=== PATIENT | male | born 1950 | race Caucasian/White ===

== ENCOUNTER 2019-01-04 15:16 | Inpatient (IN) | payer MEDICARE ==
--- NOTE | 2019-01-04 17:02 | NUR ---
RECIEVED PT FROM AMBULANCE. PT IS VERY SLUGGISH, SLOW TO RESPOND. FALLS ASLEEP WHILE SITTING UP. CL IN REACH, SRX2.
--- NOTE | 2019-01-04 18:17 | NUR ---
PT GOT OUT OF BED (BED ALARM ON) STATING HE NEEDED TO PEE. I HAD HIM SIT DOWN AND WENT TO GET A URINLE. WHEN I GOT BACK (MAYBE 1 MINUTE LATER) PT WAS OUT OF BED, URINATING IN/ON/AROUND SINK. PT IS VERY UNSTEADY ON HIS FEAT, ATAXIA MOVEMENTS. CL IN REACH, SRX2, BED ALARM ON. PT STATES HE WILL USE URINLE FROM NOW ON.
--- NOTE | 2019-01-04 19:55 | NUR ---
AT REST WITHEYES CLOSED I HAVE ENTERED ROOM X 3 AND PT WILL NOT STIR AND SLOWLY WSWINGS AT ME WHEN I ATTEMPT TO EXAM. IN BED LOW AND LOCKED WITH BED ALARM ON.
[2019-01-04 20:00] VITALS: BP 151/104
[2019-01-05] VITALS (7 sets, daily range): BP systolic 89–151; BP diastolic 54–104; BMI 26.5; BMI 15.9
[2019-01-05 05:04] LABS: BASOPHILS 0.1 % (0-2); EOSINOPHILS 0.6 % (0-7); HEMATOCRIT 40.5 % (42.0-54.0); HEMOGLOBIN 14.1 g/dL (13.5-17.5); IMMATURE GRANULOCYTES 0.2 % (0-5); LYMPHOCYTES 23.9 % (15-50); MCH 35.7 pg (26.0-34.0); MCHC 34.8 g/dL (31.0-37.0); MCV 102.5 fL (80.0-100.0); MEAN PLATELET VOLUME 9.9 fL (7.4-10.4); MONOCYTES 8.5 % (2-11); NEUTROPHILS 66.7 % (40-80); PLATELET COUNT 142 10x3/uL (130-400); RBC 3.95 10x6/uL (4.20-6.10); RDW 13.8 % (11.5-14.5); WBC 8.2 10x3/uL (4.8-10.8)
[2019-01-05 05:26] LABS: ALBUMIN 2.9 g/dL (3.4-5.0); ALKALINE PHOSPHATASE 70 U/L (46-116); ALT (SGPT) 21 U/L (10-68); AMYLASE - SERUM 49 U/L (25-115); BILIRUBIN - TOTAL 0.73 mg/dL (0.2-1.3); CALC OSMOLALITY 282 mosm/kg (275-300); CALCIUM 9.6 mg/dL (8.5-10.1); CARBON DIOXIDE 24.3 mmol/L (21.0-32.0); CHLORIDE - SERUM 107 mmol/L (98-107); CREATININE - SERUM 0.9 mg/dL (0.6-1.3); GLUCOSE 86 mg/dL (74-106); LIPASE 73 U/L (73-393); MAGNESIUM - SERUM 2.5 mg/dL (1.8-2.4); POTASSIUM - SERUM 3.4 mmol/L (3.5-5.1); PROTEIN - SERUM 6.5 g/dL (6.4-8.2); SODIUM 142 mmol/L (136-145); UREA NITROGEN 14 mg/dL (7-18); eGFR NON AFRICAN AMERICAN 89 mL/min (90-120)
--- NOTE | 2019-01-05 07:34 | NUR ---
AM ROUNDS COMPLETED. INTRODUCED MYSELF TO PT PRIMARY RN FOR TODAYS SHIFT. PT IS A&O LYING DOWN IN BED RESTING QUIETLY. PT DENIES ANY PAIN BUT DOES HAVE SLIGHT DRY COUGH. DENIES ANY SPUTUM. SHIFT ASSESSMENT COMPLETED. WILL REVIEW CHART AND LABS AND CPOC. CL IN REACH, BED IN LOWEST, SIDE RAILS X2. WILL CTM.
--- NOTE | 2019-01-05 08:15 | NUR ---
PT STATES HE TAKES A BLOOD THINNER DAILY FROM [facility] BUT ADMITS HES VERY INCONSISTENT. PT STATES HE USES [facility]. I WILL CALL THEM AND FIND OUT.
--- NOTE | 2019-01-05 10:36 | NUR ---
PTS LEGS HANGING OFF EDGE OF BED. ASSISTED PT UP IN BED WITH ASSISTANCE. PT HOLDING HIS HEAD BUT NEVER ASK FOR ANYTHING. UPON ASSESSING HIM HE DOES ADMIT TO A PRETTY SEVERE HEADACHE. WENT AND GOT HIM TYLENOL. PT VOICED THANKS AND IS RESTING QUIETLY IN BED. NO CURRENT NEEDS. CL IN HAND. WILL CTM.
--- NOTE | 2019-01-05 13:13 | NUR ---
PHARMACY THAT PT PROVIDED WAS [facility] IN [place] AND THEY STATE PT HASNT PICKED UP SINCE APRIL OF 2018 AND THE ONLY THING HE GOT WAS ELIQUIS 5MG BID. WILL TRY TO CONTACT [facility] OFFICE FOR MORE INFORMATION.
[2019-01-05] MEDS ORDERED: ELIQUIS5 MG PO (13:26)
--- NOTE | 2019-01-05 14:55 | NUR ---
PT C/O HIS HEADACHE RETURNING. REQUESTING AND PROVIDED WITH PRN TYLENOL. PT ALSO STATES HIS STOMACH IS CRAMPING AND WOULD LIKE SOME ORANGE JUICE. PT CHINMAY ANY FURTHER NEEDS AT THIS TIME AND WOULD LIKE TO TAKE ANOTHER NAP. CL IN REACH. WILL CTM.
--- NOTE | 2019-01-05 20:01 | NUR ---
RESTING WITH EYES CLOSED AND I DID NOT AROUSE RESP EVEN AND UNLABORED SKIN WARM AND DRY BED IS LOW AND LOCKED WITH SR X2 AND BED ALARM IN PLACE
[2019-01-06 00:08] VITALS: BP 110/62
--- NOTE | 2019-01-06 01:36 | NUR ---
FULL BED CHANGE AND SHOWER PT WAS MUCH MORE ALERT
--- NOTE | 2019-01-06 03:00 | NUR ---
I have reviewed this patient and I concur with the Shift Assessment completed by the Licensed Practical Nurse today this shift.
[2019-01-06 04:00] VITALS: BP 121/65
[2019-01-06 04:39] LABS: BASOPHILS 0.2 % (0-2); EOSINOPHILS 1.1 % (0-7); HEMATOCRIT 37.5 % (42.0-54.0); HEMOGLOBIN 12.7 g/dL (13.5-17.5); IMMATURE GRANULOCYTES 0.2 % (0-5); LYMPHOCYTES 22.5 % (15-50); MCH 35.2 pg (26.0-34.0); MCHC 33.9 g/dL (31.0-37.0); MCV 103.9 fL (80.0-100.0); MEAN PLATELET VOLUME 10.4 fL (7.4-10.4); MONOCYTES 8.3 % (2-11); NEUTROPHILS 67.7 % (40-80); PLATELET COUNT 143 10x3/uL (130-400); RBC 3.61 10x6/uL (4.20-6.10); WBC 8.3 10x3/uL (4.8-10.8)
[2019-01-06 04:48] LABS: ALBUMIN 2.7 g/dL (3.4-5.0); ALKALINE PHOSPHATASE 59 U/L (46-116); ALT (SGPT) 20 U/L (10-68); BILIRUBIN - TOTAL 0.46 mg/dL (0.2-1.3); CALC OSMOLALITY 286 mosm/kg (275-300); CALCIUM 9.3 mg/dL (8.5-10.1); CARBON DIOXIDE 26.4 mmol/L (21.0-32.0); CHLORIDE - SERUM 110 mmol/L (98-107); CREATININE - SERUM 0.7 mg/dL (0.6-1.3); GLUCOSE 88 mg/dL (74-106); POTASSIUM - SERUM 3.4 mmol/L (3.5-5.1); SODIUM 144 mmol/L (136-145); UREA NITROGEN 14 mg/dL (7-18); eGFR NON AFRICAN AMERICAN > 90 mL/min (90-120)
[2019-01-06 04:49] LABS: INR 1.06 (0.85-1.17); PROTIME 13.3 SECONDS (11.6-15.0)
[2019-01-06 08:44] VITALS: BP 119/74
[2019-01-06 11:40] VITALS: BP 119/80
--- NOTE | 2019-01-06 15:29 | NUR ---
I have reviewed this patient and I concur with the Shift Assessment completed by the Licensed Practical Nurse today this shift.
[2019-01-06 15:46] VITALS: BP 108/65
--- NOTE | 2019-01-06 19:00 | NUR ---
PATIENT LAYING IN BED. PATIENT HAS NO COMPLAINTS AT THIS TIME. NO DISTRESS NOTED.
--- NOTE | 2019-01-06 19:30 | MORECARE ---
CASE MANAGEMENT DISCHARGE SUMMARY PATIENT: ANGELI MOURA UNIT: [id number] ADM DATE: 01/04/19 AGE: 68 : 50 SEX: M ROOM/BED: D.2109 AUTHOR: ALAN PEÑALOZA PHYSICIAN: REFERRING PHYSICIAN: MANNY WOODRUFF DO DATE OF SERVICE: 01/06/19 Discharge Plan Patient Name: ANGELI MOURA [facility] [facility] 1950 [facility] Facility Anticipated Discharge Date: Discharge Date: Expected LOS: Initial Reviewer: [id number] Initial Review Date: 01/04/2019 Generated: 01/06/19 8:29 pm Patient Name: ANGELI MOURA Page [id number] at 1930 All edits/amendments must be made on the electronic document DICTATION DATE: 01/06/191928 FOOD SERVICE STEWARD: TIANA 01/06/191928 RPT#: [id number] DC DATE: STATUS: ADM IN [facility] [address] [place] [address] END OF REPORT
--- NOTE | 2019-01-06 19:51 | MORECARE ---
CASE MANAGEMENT DISCHARGE SUMMARY PATIENT: ANGELI MOURA UNIT: [id number] ADM DATE: 01/04/19 AGE: 68 : 50 SEX: M ROOM/BED: D.2106 AUTHOR: JH,DOC PHYSICIAN: REFERRING PHYSICIAN: MANNY WOODRUFF DO DATE OF SERVICE: 01/06/19 Discharge Plan Patient Name: ANGELI MOURA Facility: [facility]:[place] : 1950 Planned Disposition: Senior Care Facility Anticipated Discharge Date: Discharge Date: Expected LOS: Initial Reviewer: [email or web address] Initial Review Date: 01/04/2019 Generated: 01/06/19 8:50 pm Comments DCP- Discharge Planning Updated by [email or web address]: Janessa Rowell on 01/06/19 6:[address] Patient Name: ANGELI MOURA Admission Status: Elective Accout number: [id number] Admission Date: 01-04-2019 : 1950 Admission Diagnosis: Attending: MANNY WOODRUFF Current LOS: 2 Anticipated DC Date: Planned Disposition: Senior Care Facility Primary Insurance: UNINSURED DISCOUNT PLAN Discharge Planning Comments: LATE ENTRY CM MET WITH THE PATIENT AT THE BEDSIDE THIS EARLY AFTERNOON. HE WAS PLEASANT AND COOPERATIVE. HE IS STILL HAZY WHEN ANSWERING QUESTIONS. STATED HE HAS TWO SONS. STATED HE LIVES AT [address] [place] [address]. STATES HE LIVES ALONE. GIVE PHONE NUMBER FOR HIS SON- [phone]. THIS IS NOT THE SON'S PHONE NUMBER. HE DOES NOT HAVE A PCP. PHARMACY- [facility] IN [place]. STATES HE WAS IN A [facility] IN [place] 6 MONTHS AGO. HE CANNOT RECALL THE NAME. TC TO [facility] IN [place] [phone]. PATIENT HAD BEEN THERE PREVIOUSLY. HE WAS DISCHARGED IN 2017. CM ASK IF THEY HAD FAMILY CONTACT PHONE NUMBERS. OBTAINED PHONE NUMBER FOR PATIENT'S EX- . CM SPOKE W/ THE PATIENT. REC CONSENT TO CALL THE EXWIFE. TC TO CALI MOURA AT [phone]. SHE IS COGNIZANT OF PATIENT'S HOSPITALIZATION. SHE CAME UP TO SEE HIM AND SECURED HIS BELONGINGS. SHE WORKS TWO JOBS. SHE IS WILLING TO ASSIST W/ DISCHARHE. SHE FEELS HE SHOULD GO TO A SKILLED FACILITY IF POSSIBLE. SHE STATES HE DOES HAVE INSURANCE. SHE HAS HIS WALLET. SHE CHECKED AND HE HAS MULTIPLE INSURANCE CALLS. CM PROVIDED HER WITH THE PHONE NUMBER FOR MED DATA. HE HAS A [facility] MEDICARE HEALTH CARD MEMBER # [id number] GRP [id number]. SHE DOES NOT HAVE HIS SS#. SHE STATES HE IS A . SHE DOES NOT KNOW IF HE UTILIZES VA CARE. SHE FEELS A FACILITY IN [place] WOULD BE BEST FOR THE PATIENT. SHE STATES HE NEEDS TO BE AWAY FROM PEOPLE WHO INFLUENCE HIM AND ENCOURAGES HIS HABITS. ?? [address] IN [place]. SHE HAD SPOKEN WITH HIS PRIMARY NURSE EARLIER TODAY. SHE WILL FOLLOW THRU W/ MED DATA REGARDING INSURANCE ISSUES. CM TO FOLLOW TO ASSIST W/ DC PLANNING. PATIENT WILL NEED TO BE MORE ORIENTED AND ALERT TO PARTICIPATE. PAL TELEPHONED MED DATA AND SPOKE W/ MICHAEL. PROVIDED MICHAEL WITH EX- CONTACT INFORMATION. Assembler Skylights: Janessa HEART export: 01/06/19 6:30 p Patient Name: ANGELI MOURA Page [phone] at 195 All edits/amendments must be made on the electronic document DICTATION DATE: 01/06/191949 DOORSHAKER: TIANA 01/06/191949 RPT#: [id number] DC DATE: STATUS: ADM IN [facility] [address] [place] [address] END OF REPORT
[2019-01-06 20:00] VITALS: BP 106/69
[2019-01-07] VITALS: BP 125/76
--- NOTE | 2019-01-07 01:34 | NUR ---
PATIENT LAYING IN BED. EYES CLOSED, CHEST RISING AND FALLING. NO DISTRESS NOTED.
[2019-01-07 04:00] VITALS: BP 141/80
[2019-01-07 05:10] LABS: BASOPHILS 0.3 % (0-2); EOSINOPHILS 1.7 % (0-7); HEMATOCRIT 36.4 % (42.0-54.0); HEMOGLOBIN 12.3 g/dL (13.5-17.5); IMMATURE GRANULOCYTES 0.3 % (0-5); LYMPHOCYTES 24.9 % (15-50); MCH 34.9 pg (26.0-34.0); MCHC 33.8 g/dL (31.0-37.0); MCV 103.4 fL (80.0-100.0); MEAN PLATELET VOLUME 10.3 fL (7.4-10.4); MONOCYTES 10.4 % (2-11); NEUTROPHILS 62.4 % (40-80); PLATELET COUNT 151 10x3/uL (130-400); RBC 3.52 10x6/uL (4.20-6.10); WBC 6.6 10x3/uL (4.8-10.8)
[2019-01-07 05:39] LABS: ALBUMIN 2.6 g/dL (3.4-5.0); ALKALINE PHOSPHATASE 55 U/L (46-116); ALT (SGPT) 16 U/L (10-68); BILIRUBIN - TOTAL 0.41 mg/dL (0.2-1.3); CALC OSMOLALITY 282 mosm/kg (275-300); CALCIUM 9.3 mg/dL (8.5-10.1); CARBON DIOXIDE 25.2 mmol/L (21.0-32.0); CHLORIDE - SERUM 111 mmol/L (98-107); CREATININE - SERUM 0.7 mg/dL (0.6-1.3); GLUCOSE 98 mg/dL (74-106); POTASSIUM - SERUM 3.1 mmol/L (3.5-5.1); PROTEIN - SERUM 5.9 g/dL (6.4-8.2); SODIUM 142 mmol/L (136-145); UREA NITROGEN 13 mg/dL (7-18); eGFR NON AFRICAN AMERICAN > 90 mL/min (90-120)
--- NOTE | 2019-01-07 07:45 | NUR ---
AM ROUNDS COMPLETED. INTRODUCED MYSELF TO PT PRIMARY RN FOR TODAYS SHIFT. PT IS A&O LYING BACK IN BED RESTING QUIETLY. SHIFT ASSESSMENT COMPLETED. PT DENIES ANY CURRENT PAIN OR NEEDS AND IS WAITING ON BREAKFAST. CL IN REACH. WILL CTM.
[2019-01-07 08:18] VITALS: BP 136/64
--- NOTE | 2019-01-07 09:28 | NUR ---
PT SITTING UP IN BED RESTING QUIETLY. PT STATES HE IS FEELING GOOD OVERALL GETS OCCASIONAL HEADACHES, PROVIDED WITH TYLENOL PT IS READY TO START SOME THERAPY AND STATES HE KNOWS HE IS WEAK. NO CURRENT NEEDS AT THIS TIME. CL IN REACH. WILL CTM.
[2019-01-07 12:39] VITALS: BP 119/72
--- NOTE | 2019-01-07 14:23 | NUR ---
PT STATES HIS CHEST IS HURTING. VSS. STAT EKG PERFORMED AND NOTED TO MORGAN DAWN APN ON FLOOR. PT STATES "IT JUST HURTS I CANT EXPLAIN IT" EKG NORMAL, WILL CTM.
[2019-01-07 16:50] VITALS: BP 121/72
[2019-01-07 17:04] LABS: CKMB 1.1 U/L (0.0-3.6); CREATINE KINASE 84 UL (21-232); TROPONIN-I < 0.017 ng/mL (0.000-0.060)
--- NOTE | 2019-01-07 18:08 | MORECARE ---
CASE MANAGEMENT DISCHARGE SUMMARY PATIENT: ANGELI MOURA UNIT: [id number] ADM DATE: 01/04/19 AGE: 68 : 50 SEX: M ROOM/BED: D.2107 AUTHOR: JH,DOC PHYSICIAN: REFERRING PHYSICIAN: MANNY WOODRUFF DO DATE OF SERVICE: 01/07/19 Discharge Plan Patient Name: ANGELI MOURA Facility: [facility]:[place] : 1950 Planned Disposition: Nursing Home Facility Anticipated Discharge Date: Discharge Date: Expected LOS: Initial Reviewer: [id number] Initial Review Date: 01/04/2019 Generated: 01/07/19 7:08 pm Comments DCP- Discharge Planning Updated by [id number]: Janessa Rowell on 01/07/19 5:[address] LATE ENTRY RECEIVED TELEPHONE CALL FROM KEYONA WITH [employer]. HE HAS OBATINED THE NECESSARY INSURANCE INFORMATION. CM WILL BEGIN SEARCH FOR A FACILITY A PAYOR SOURCE HAS BEEN IDENTIFIED FOR SERVICES. DCP- Discharge Planning Updated by [id number]: Janessa Rowell on 01/06/19 6:[address] Patient Name: ANGELI MOURA Admission Status: Elective Accout number: [id number] Admission Date: 01-04-2019 : 1950 Admission Diagnosis: Attending: MANNY WOODRUFF Current LOS: 2 Anticipated DC Date: Planned Disposition: Nursing Home Facility Primary Insurance: UNINSURED DISCOUNT PLAN Discharge Planning Comments: LATE ENTRY CM MET WITH THE PATIENT AT THE BEDSIDE THIS EARLY AFTERNOON. HE WAS PLEASANT AND COOPERATIVE. HE IS STILL HAZY WHEN ANSWERING QUESTIONS. STATED HE HAS TWO SONS. STATED HE LIVES AT [address] [place] [address]. STATES HE LIVES ALONE. GIVE PHONE NUMBER FOR HIS SON- [phone]. THIS IS NOT THE SON'S PHONE NUMBER. HE DOES NOT HAVE A PCP. PHARMACY- [facility] IN [place]. STATES HE WAS IN A RESIDENTIAL IN [place] 6 MONTHS AGO. HE CANNOT RECALL THE NAME. TC TO [facility] IN [place] [phone]. PATIENT HAD BEEN THERE PREVIOUSLY. HE WAS DISCHARGED IN 2017. CM ASK IF THEY HAD FAMILY CONTACT PHONE NUMBERS. OBTAINED PHONE NUMBER FOR PATIENT'S EX- . CM SPOKE W/ THE PATIENT. REC CONSENT TO CALL THE EXWIFE. TC TO CALI MOURA AT [phone]. SHE IS COGNIZANT OF PATIENT'S HOSPITALIZATION. SHE CAME UP TO SEE HIM AND SECURED HIS BELONGINGS. SHE WORKS TWO JOBS. SHE IS WILLING TO ASSIST W/ DISCHARHE. SHE FEELS HE SHOULD GO TO A SKILLED FACILITY IF POSSIBLE. SHE STATES HE DOES HAVE INSURANCE. SHE HAS HIS WALLET. SHE CHECKED AND HE HAS MULTIPLE INSURANCE CALLS. CM PROVIDED HER WITH THE PHONE NUMBER FOR MED DATA. HE HAS A [facility] MEDICARE HEALTH CARD MEMBER # [id number] GRP [phone]. SHE DOES NOT HAVE HIS SS#. SHE STATES HE IS A . SHE DOES NOT KNOW IF HE UTILIZES VA CARE. SHE FEELS A FACILITY IN [place] WOULD BE BEST FOR THE PATIENT. SHE STATES HE NEEDS TO BE AWAY FROM PEOPLE WHO INFLUENCE HIM AND ENCOURAGES HIS HABITS. ?? [address] IN [place]. SHE HAD SPOKEN WITH HIS PRIMARY NURSE EARLIER TODAY. SHE WILL FOLLOW THRU W/ MED DATA REGARDING INSURANCE ISSUES. CM TO FOLLOW TO ASSIST W/ DC PLANNING. PATIENT WILL NEED TO BE MORE ORIENTED AND ALERT TO PARTICIPATE. CM TELEPHONED MED DATA AND SPOKE W/ MICHAEL. PROVIDED MICHAEL WITH EX- CONTACT INFORMATION. Boat Tender: Janessa HEART export: 01/06/19 6:50 p Patient Name: ANGELI MOURA Page [phone] at 1808 All edits/amendments must be made on the electronic document DICTATION DATE: 01/07/191807 CATEGORY ANALYST: TIANA 01/07/191807 RPT#: [id number] DC DATE: STATUS: ADM IN [facility] [address] [place] [place] [address] END OF REPORT
--- NOTE | 2019-01-07 19:15 | NUR ---
PATIENT LAYING IN BED. NO COMPLAINTS AT THIS TIME. NO DISTRESS NOTED.
[2019-01-07 21:04] VITALS: BP 120/71
[2019-01-07 21:39] LABS: CKMB 0.8 U/L (0.0-3.6); CREATINE KINASE 80 UL (21-232)
[2019-01-07 21:49] LABS: TROPONIN-I < 0.017 ng/mL (0.000-0.060)
[2019-01-08 01:29] VITALS: BP 119/67
[2019-01-08 02:50] LABS: BASOPHILS 0.5 % (0-2); HEMATOCRIT 33.4 % (42.0-54.0); HEMOGLOBIN 11.5 g/dL (13.5-17.5); IMMATURE GRANULOCYTES 0.3 % (0-5); LYMPHOCYTES 33.1 % (15-50); MCH 35.1 pg (26.0-34.0); MCHC 34.4 g/dL (31.0-37.0); MCV 101.8 fL (80.0-100.0); MEAN PLATELET VOLUME 10.1 fL (7.4-10.4); MONOCYTES 11.3 % (2-11); NEUTROPHILS 52.8 % (40-80); PLATELET COUNT 156 10x3/uL (130-400); RBC 3.28 10x6/uL (4.20-6.10); RDW 13.4 % (11.5-14.5); WBC 6.4 10x3/uL (4.8-10.8)
[2019-01-08 03:03] LABS: ALBUMIN 2.4 g/dL (3.4-5.0); ALKALINE PHOSPHATASE 51 U/L (46-116); ALT (SGPT) 16 U/L (10-68); CALC OSMOLALITY 286 mosm/kg (275-300); CALCIUM 8.9 mg/dL (8.5-10.1); CARBON DIOXIDE 24.3 mmol/L (21.0-32.0); CHLORIDE - SERUM 111 mmol/L (98-107); CREATINE KINASE 66 UL (21-232); CREATININE - SERUM 0.7 mg/dL (0.6-1.3); GLUCOSE 103 mg/dL (74-106); MAGNESIUM - SERUM 2.3 mg/dL (1.8-2.4); PROTEIN - SERUM 5.5 g/dL (6.4-8.2); SODIUM 144 mmol/L (136-145); UREA NITROGEN 12 mg/dL (7-18); eGFR NON AFRICAN AMERICAN > 90 mL/min (90-120)
[2019-01-08 03:04] LABS: TROPONIN-I < 0.017 ng/mL (0.000-0.060)
--- NOTE | 2019-01-08 03:30 | NUR ---
PATIENT LAYING IN BED. EYES CLOSED, CHEST RISING AND FALLING. NO DISTRESS NOTED.
--- NOTE | 2019-01-08 06:12 | NUR ---
I have reviewed this patient and I concur with the Shift Assessment completed by the Licensed Practical Nurse today this shift.
[2019-01-08 06:22] VITALS: BP 136/75
--- NOTE | 2019-01-08 07:45 | NUR ---
RESTING QUIETLY WITH EYES CLOSED, OPENED TO NAME. A/A/0X4 AND DENIES ANY PAIN OR DISCOMFORT WITH NO REQUESTS VOICED. ASSESSMENT COMPLETED AND WILL CONTINUE POC.
[2019-01-08 08:13] VITALS: BP 154/93
--- NOTE | 2019-01-08 10:55 | NUR ---
I have reviewed this patient and I concur with the Shift Assessment completed by the Licensed Practical Nurse today this shift.
[2019-01-08 11:45] VITALS: BP 129/80
--- NOTE | 2019-01-08 14:37 | NUR ---
Nutrition follow-up: Diet: Low sodium PO intake 75-100% of meals Labs reviewed Wt: 115#; pt with some weight gain noted RDN following.
[2019-01-08 16:29] VITALS: BP 134/84
[2019-01-08 20:00] VITALS: BP 122/71
--- NOTE | 2019-01-08 20:00 | NUR ---
PATIENT RECEIVED SITTING UP IN BED WATCHING TV. ASSESSMENT & VITAL SIGNS DONE. PATIENT HAD NO C/O PAIN OR DISTRESS. BED LOW. CALL LIGHT WITHIN REACH. WILL CONTINUE TO MONITOR.
--- NOTE | 2019-01-08 20:03 | MORECARE ---
CASE MANAGEMENT DISCHARGE SUMMARY PATIENT: ANGELI MOURA UNIT: [id number] ADM DATE: 01/04/19 AGE: 68 : 50 SEX: M ROOM/BED: D.2108 AUTHOR: JH,DOC PHYSICIAN: REFERRING PHYSICIAN: MANNY WOODRUFF DO DATE OF SERVICE: 01/08/19 Discharge Plan Patient Name: ANGELI MOURA Facility: [facility]:[place] : 1950 Planned Disposition: Detention Facility Anticipated Discharge Date: Discharge Date: Expected LOS: Initial Reviewer: [id number] Initial Review Date: 01/04/2019 Generated: 01/08/19 9:03 pm Comments DCP- Discharge Planning Updated by [id number]: Janessa Rowell on 01/08/19 6:[address] 1000 - TC TO 2591 TO ADVISE THE PATIENT'S INSURANCE HAD BEEN UPDATED. HE HAS [facility] MEDICARE SOLUTIONS. SHE WILL PRECERT. 7460 - [facility] ADVISED I SEARCHED FOR A SKILLED FACILITY ON [facility] ON [address] [place] [address] [facility] [place]. NO FACILITY FOUND. REVIEWED THE FACILITIES AND RATINGS FOUND ON THE INTERNET. HAD SPOKEN WITH THE PATIENT, HE SAID IT WAS LOCATED A FEW BLOCKS FROM [facility]. TC TO [facility]. CM WAS ADVISED [facility] WAS A FEW BLOCK AWAY WHICH IS AN ACUTE REHAB. TC TO [facility], FOR [facility]- [phone]. PACKET PREPARED FOR REFERRAL. PAL RECEIVED TELEPHONE CALL FROM FELY MITCHELL, THE FACILITY'S NAME IS [facility] WHICH IS A SKILLED FACILITY. PT EVAL HAD BEEN COMPLETED WITH RECOMMENDATION FOR SNF OR REHAB. AWAIT OT EVAL. OT WILL NOT BE AVAILABLE UNTIL FRIDAY DUE TO ILLNESS. PATIENT WILL ALSO REQUIRE A PRECERT FROM HIS INSURANCE. CM DISCUSSED WITH THE PATIENT. HE IS IN AGREEMENT WITH THE REFERRAL DIRECTED BY THE EX-. TC TO [phone]. REFERRED TO [facility] AGRICULTURAL E[facility]OMIST, AT [phone]. CM FAXED REFERRAL TO [place] AFTER DISCUSSION W/ CASEY. SHE STATES THEY ARE CONTRACTED W/ [facility] MEDICARE SOLUTIONS. FAX NUMBER [phone]. AWAIT CALL FROM AGRICULTURAL ECONOMIST. DCP- Discharge Planning Updated by [id number]: Janessa Sorin on 01/07/19 5:[address] LATE ENTRY RECEIVED TELEPHONE CALL FROM [employer] WITH [employer]. HE HAS OBATINED THE NECESSARY INSURANCE INFORMATION. CM WILL BEGIN SEARCH FOR A FACILITY A PAYOR SOURCE HAS BEEN IDENTIFIED FOR SERVICES. DCP- Discharge Planning Updated by [id number]: Janessa Sorin on 01/06/19 6:[address] Patient Name: ANGELI MOURA Admission Status: Elective Accout number: [id number] Admission Date: 01-04-2019 : 1950 Admission Diagnosis: Attending: MANNY WOODRUFF Current LOS: 2 Anticipated DC Date: Planned Disposition: Detention Facility Primary Insurance: UNINSURED DISCOUNT PLAN Discharge Planning Comments: LATE ENTRY CM MET WITH THE PATIENT AT THE BEDSIDE THIS EARLY AFTERNOON. HE WAS PLEASANT AND COOPERATIVE. HE IS STILL HAZY WHEN ANSWERING QUESTIONS. STATED HE HAS TWO SONS. STATED HE LIVES AT [address] [place] [address]. STATES HE LIVES ALONE. GIVE PHONE NUMBER FOR HIS SON- [phone]. THIS IS NOT THE SON'S PHONE NUMBER. HE DOES NOT HAVE A PCP. PHARMACY- [facility] IN [place]. STATES HE WAS IN A [facility] IN [place] 6 MONTHS AGO. HE CANNOT RECALL THE NAME. TC TO [facility] IN [place] [phone]. PATIENT HAD BEEN THERE PREVIOUSLY. HE WAS DISCHARGED IN 2017. CM ASK IF THEY HAD FAMILY CONTACT PHONE NUMBERS. OBTAINED PHONE NUMBER FOR PATIENT'S EX- . PAL SPOKE W/ THE PATIENT. REC CONSENT TO CALL THE EXWIFE. TC TO CALI MOURA AT [phone]. SHE IS COGNIZANT OF PATIENT'S HOSPITALIZATION. SHE CAME UP TO SEE HIM AND SECURED HIS BELONGINGS. SHE WORKS TWO JOBS. SHE IS WILLING TO ASSIST W/ VINCENT. SHE FEELS HE SHOULD GO TO A SKILLED FACILITY IF POSSIBLE. SHE STATES HE DOES HAVE INSURANCE. SHE HAS HIS WALLET. SHE CHECKED AND HE HAS MULTIPLE INSURANCE CALLS. PAL PROVIDED HER WITH THE PHONE NUMBER FOR MED DATA. HE HAS A [facility] MEDICARE HEALTH CARD MEMBER # [id number] [facility] [address]. SHE DOES NOT HAVE HIS SS#. SHE STATES HE IS A . SHE DOES NOT KNOW IF HE UTILIZES VA CARE. SHE FEELS A FACILITY IN [place] WOULD BE BEST FOR THE PATIENT. SHE STATES HE NEEDS TO BE AWAY FROM PEOPLE WHO INFLUENCE HIM AND ENCOURAGES HIS HABITS. ?? [address] IN [place]. SHE HAD SPOKEN WITH HIS PRIMARY NURSE EARLIER TODAY. SHE WILL FOLLOW THRU W/ MED DATA REGARDING INSURANCE ISSUES. CM TO FOLLOW TO ASSIST W/ DC PLANNING. PATIENT WILL NEED TO BE MORE ORIENTED AND ALERT TO PARTICIPATE. CM TELEPHONED MED DATA AND SPOKE W/ MICHAEL. PROVIDED MICHAEL WITH EX- CONTACT INFORMATION. Business Systems Administrator: Janessa Rsoe DP export: 01/07/19 5:08 p Patient Name: ANGELI MOURA Page [phone] at 2002 All edits/amendments must be made on the electronic document DICTATION DATE: 01/08/192002 TESTING TECH: TIANA 01/08/192002 RPT#: [id number] DC DATE: STATUS: ADM IN [facility] [address] [place] [address] END OF REPORT
--- NOTE | 2019-01-08 20:10 | MORECARE ---
CASE MANAGEMENT DISCHARGE SUMMARY PATIENT: ANGELI MOURA UNIT: [id number] ADM DATE: 01/04/19 AGE: 68 : 50 SEX: M ROOM/BED: D.2100 AUTHOR: JH,DOC PHYSICIAN: REFERRING PHYSICIAN: MANNY WOODRUFF DO DATE OF SERVICE: 01/08/19 Discharge Plan Patient Name: ANGELI MOURA Facility: [facility]:[place] : 1950 Planned Disposition: [facility] Facility Anticipated Discharge Date: Discharge Date: Expected LOS: Initial Reviewer: [id number] Initial Review Date: 01/04/2019 Generated: 01/08/19 9:10 pm Comments DCP- Discharge Planning Updated by [id number]: Janessa Rowell on 01/08/19 7:[address] 1000 - TC TO 2591 TO ADVISE THE PATIENT'S INSURANCE HAD BEEN UPDATED. HE HAS [facility] MEDICARE SOLUTIONS. SHE WILL PRECERT. 6640 - [facility] ADVISED I SEARCHED FOR A SKILLED FACILITY ON [facility] ON [address] [place] [address] [facility] [place]. NO FACILITY FOUND. REVIEWED THE FACILITIES AND RATINGS FOUND ON THE INTERNET. HAD SPOKEN WITH THE PATIENT, HE SAID IT WAS LOCATED A FEW BLOCKS FROM [facility]. TC TO [facility]. CM WAS ADVISED [facility] WAS A FEW BLOCK AWAY WHICH IS AN ACUTE REHAB. TC TO [facility], FOR [facility]- [phone]. PACKET PREPARED FOR REFERRAL. CM RECEIVED TELEPHONE CALL FROM FELY MITCHELL, THE FACILITY'S NAME IS [facility] WHICH IS A SKILLED FACILITY. PT EVAL HAD BEEN COMPLETED WITH RECOMMENDATION FOR SNF OR REHAB. AWAIT OT EVAL. OT WILL NOT BE AVAILABLE UNTIL FRIDAY DUE TO ILLNESS. PATIENT WILL ALSO REQUIRE A PRECERT FROM HIS INSURANCE. CM DISCUSSED WITH THE PATIENT. HE IS IN AGREEMENT WITH THE REFERRAL DIRECTED BY THE EX-. PATIENT CONSENT OBTAINED. TC TO [phone]. REFERRED TO [facility] ROOM GEAR MACHINE OPERATOR, AT [phone]. CM FAXED REFERRAL TO [place] AFTER DISCUSSION W/ CASEY. SHE STATES THEY ARE CONTRACTED W/ [facility] MEDICARE SOLUTIONS. FAX NUMBER [phone]. AWAIT CALL FROM TOOL ROOM GEAR MACHINE OPERATOR. DCP- Discharge Planning Updated by [id number]: Janessa Rowell on 01/07/19 5:[address] LATE ENTRY RECEIVED TELEPHONE CALL FROM [employer] WITH [employer]. HE HAS OBATINED THE NECESSARY INSURANCE INFORMATION. CM WILL BEGIN SEARCH FOR A FACILITY A PAYOR SOURCE HAS BEEN IDENTIFIED FOR SERVICES. DCP- Discharge Planning Updated by [id number]: Janessa Sorin on 01/06/19 6:[address] Patient Name: ANGELI MOURA Admission Status: Elective Accout number: [id number] Admission Date: 01-04-2019 : 1950 Admission Diagnosis: Attending: MANNY WOODRUFF Current LOS: 2 Anticipated DC Date: Planned Disposition: [facility] Facility Primary Insurance: UNINSURED DISCOUNT PLAN Discharge Planning Comments: LATE ENTRY CM MET WITH THE PATIENT AT THE BEDSIDE THIS EARLY AFTERNOON. HE WAS PLEASANT AND COOPERATIVE. HE IS STILL HAZY WHEN ANSWERING QUESTIONS. STATED HE HAS TWO SONS. STATED HE LIVES AT [address] [place] [address]. STATES HE LIVES ALONE. GIVE PHONE NUMBER FOR HIS SON- [phone]. THIS IS NOT THE SON'S PHONE NUMBER. HE DOES NOT HAVE A PCP. PHARMACY- [facility] IN [place]. STATES HE WAS IN A [facility]AY IN [place] 6 MONTHS AGO. HE CANNOT RECALL THE NAME. TC TO [facility] IN [place] [phone]. PATIENT HAD BEEN THERE PREVIOUSLY. HE WAS DISCHARGED IN 2017. CM ASK IF THEY HAD FAMILY CONTACT PHONE NUMBERS. OBTAINED PHONE NUMBER FOR PATIENT'S EX- . PAL SPOKE W/ THE PATIENT. REC CONSENT TO CALL THE EXWIFE. TC TO CALI MOURA AT [phone]. SHE IS COGNIZANT OF PATIENT'S HOSPITALIZATION. SHE CAME UP TO SEE HIM AND SECURED HIS BELONGINGS. SHE WORKS TWO JOBS. SHE IS WILLING TO ASSIST W/ VINCENT. SHE FEELS HE SHOULD GO TO A SKILLED FACILITY IF POSSIBLE. SHE STATES HE DOES HAVE INSURANCE. SHE HAS HIS WALLET. SHE CHECKED AND HE HAS MULTIPLE INSURANCE CALLS. PAL PROVIDED HER WITH THE PHONE NUMBER FOR MED DATA. HE HAS A [facility] MEDICARE HEALTH CARD MEMBER # [id number] [facility] [address]. SHE DOES NOT HAVE HIS SS#. SHE STATES HE IS A . SHE DOES NOT KNOW IF HE UTILIZES VA CARE. SHE FEELS A FACILITY IN [place] WOULD BE BEST FOR THE PATIENT. SHE STATES HE NEEDS TO BE AWAY FROM PEOPLE WHO INFLUENCE HIM AND ENCOURAGES HIS HABITS. ?? [address] IN [place]. SHE HAD SPOKEN WITH HIS PRIMARY NURSE EARLIER TODAY. SHE WILL FOLLOW THRU W/ MED DATA REGARDING INSURANCE ISSUES. CM TO FOLLOW TO ASSIST W/ DC PLANNING. PATIENT WILL NEED TO BE MORE ORIENTED AND ALERT TO PARTICIPATE. CM TELEPHONED MED DATA AND SPOKE W/ MICHAEL. PROVIDED MICHAEL WITH EX- CONTACT INFORMATION. Watch Hairspring Assembler: Janessa HEART export: 01/08/19 7:03 p Patient Name: ANGELI MOURA Page [id number] at 2009 All edits/amendments must be made on the electronic document DICTATION DATE: 01/08/192009 RN INTERN: TIANA 01/08/192009 RPT#: [id number] DC DATE: STATUS: ADM IN [facility] [address] [place] [address] END OF REPORT
--- NOTE | 2019-01-09 02:29 | NUR ---
PATIENT EYES CLOSED. RESPIRATIONS 18 & EVEN. BED LOW. PATIENT ABLE TO VOICE HIS NEEDS & USE CALL LIGHT WITHIN REACH. WILL CONTINUE TO MONITOR.
[2019-01-09 03:40] LABS: BASOPHILS 0.6 % (0-2); EOSINOPHILS 2.8 % (0-7); HEMOGLOBIN 11.3 g/dL (13.5-17.5); IMMATURE GRANULOCYTES 0.3 % (0-5); LYMPHOCYTES 35.3 % (15-50); MCH 35.2 pg (26.0-34.0); MCHC 34.2 g/dL (31.0-37.0); MCV 102.8 fL (80.0-100.0); MONOCYTES 10.2 % (2-11); NEUTROPHILS 50.8 % (40-80); PLATELET COUNT 179 10x3/uL (130-400); RBC 3.21 10x6/uL (4.20-6.10); RDW 13.6 % (11.5-14.5); WBC 6.5 10x3/uL (4.8-10.8)
[2019-01-09 04:00] VITALS: BP 137/92
[2019-01-09 04:01] LABS: ALBUMIN 2.4 g/dL (3.4-5.0); ALKALINE PHOSPHATASE 51 U/L (46-116); ALT (SGPT) 20 U/L (10-68); BILIRUBIN - TOTAL 0.26 mg/dL (0.2-1.3); CALC OSMOLALITY 287 mosm/kg (275-300); CALCIUM 9.3 mg/dL (8.5-10.1); CARBON DIOXIDE 24.7 mmol/L (21.0-32.0); CHLORIDE - SERUM 113 mmol/L (98-107); CREATININE - SERUM 0.7 mg/dL (0.6-1.3); GLUCOSE 94 mg/dL (74-106); MAGNESIUM - SERUM 1.8 mg/dL (1.8-2.4); POTASSIUM - SERUM 3.4 mmol/L (3.5-5.1); PROTEIN - SERUM 5.5 g/dL (6.4-8.2); SODIUM 145 mmol/L (136-145); UREA NITROGEN 11 mg/dL (7-18); eGFR NON AFRICAN AMERICAN > 90 mL/min (90-120)
--- NOTE | 2019-01-09 04:37 | NUR ---
I have reviewed this patient and I concur with the Shift Assessment completed by the Licensed Practical Nurse today this shift.
--- NOTE | 2019-01-09 07:23 | NUR ---
PT AWAKEN AND ORIENTED, WALKING AROUND ROOM. PT ASKED HOW TO GET OUT OF HERE, WENT ON TO EXPLAIN THAT HE NEEDED TO GO TO THE BANK AND HAD THINGS HE NEEDED TO DO. I INFORMED THE PT THAT HE NEEDED A DISCHARGE TO LEAVE, THAT LEAVING WITHOUT A D/C WOULD MEAN THAT INSURANCE WOULDN'T PAY FOR HIS VISIT. PT UNDERSTOOD AND STATED HE'D WAIT FOR THE DR AND EXPLAIN THAT HE WANTED TO D/C AT THAT TIME. NO COMPLAINTS/CONCERNS STATED, NO DISTRESS STATED OR NOTED AT THIS TIME. CL IN REACH.
[2019-01-09 08:33] VITALS: BP 146/70
--- NOTE | 2019-01-09 10:20 | NUR ---
I have reviewed this patient and I concur with the Shift Assessment completed by the Licensed Practical Nurse today this shift.
[2019-01-09 12:16] VITALS: BP 141/66
[2019-01-09 15:45] VITALS: BP 136/76
--- NOTE | 2019-01-09 19:38 | NUR ---
PT COMPLAINS OF PRESSURE CHEST PAIN. PT IS ALERT AND ORIENTED X3. EKG SHOWS NORMAL SINUS 70/ BORDERLINE. PLACED PT ON TELE RUNNING 71 SINUS RYTHEM. BED LOW CALL LIGHT WITHIN REACH. WILL CONTINUE TO MONITOR.
--- NOTE | 2019-01-09 20:21 | NUR ---
PT COMPLAINS OF PAIN IN LEFT EYE. PT STATES HE FELL AT HOME. PT HAS ELEVATED QUARTER SIZED BUMP ON HEAD. VT RR EVEN AND UNLABORED BED LOW CALL LIGHT WITHIN REACH. WILL CONTINUE TO MONITOR.
[2019-01-09 20:22] VITALS: BP 88/58
--- NOTE | 2019-01-09 22:24 | NUR ---
PT SITTING UP ON SIDE OF BED REQUESTING CUP OF COFFEE. WILL CONTINUE TO MONITOR.
--- NOTE | 2019-01-09 22:53 | NUR ---
PT REFUSES TO WEAR TELEMETRY AT THIS TIME. WILL CONTINUE TO MONITOR.
[2019-01-09 23:57] VITALS: BP 100/61
--- NOTE | 2019-01-10 02:39 | NUR ---
PT RESTING IN BED WITH EYES CLOSED RR EVEN AND UNLABORED. BED LOW CALL LIGHT WITHIN REACH. WILL CONTINUE TO MONITOR.
--- NOTE | 2019-01-10 03:17 | NUR ---
I have reviewed this patient and I concur with the Shift Assessment completed by the Licensed Practical Nurse today this shift.
[2019-01-10 05:04] LABS: BASOPHILS 0.7 % (0-2); EOSINOPHILS 2.1 % (0-7); HEMATOCRIT 32.3 % (42.0-54.0); IMMATURE GRANULOCYTES 0.3 % (0-5); LYMPHOCYTES 39.4 % (15-50); MCH 34.7 pg (26.0-34.0); MCHC 34.1 g/dL (31.0-37.0); MCV 101.9 fL (80.0-100.0); MEAN PLATELET VOLUME 9.8 fL (7.4-10.4); MONOCYTES 10.7 % (2-11); NEUTROPHILS 46.8 % (40-80); PLATELET COUNT 199 10x3/uL (130-400); RBC 3.17 10x6/uL (4.20-6.10); RDW 13.6 % (11.5-14.5); WBC 6.7 10x3/uL (4.8-10.8)
[2019-01-10 05:35] LABS: ALBUMIN 2.4 g/dL (3.4-5.0); ALKALINE PHOSPHATASE 52 U/L (46-116); ALT (SGPT) 21 U/L (10-68); BILIRUBIN - TOTAL 0.21 mg/dL (0.2-1.3); CALC OSMOLALITY 284 mosm/kg (275-300); CHLORIDE - SERUM 113 mmol/L (98-107); CREATININE - SERUM 0.7 mg/dL (0.6-1.3); GLUCOSE 83 mg/dL (74-106); MAGNESIUM - SERUM 2.1 mg/dL (1.8-2.4); POTASSIUM - SERUM 3.4 mmol/L (3.5-5.1); PROTEIN - SERUM 5.5 g/dL (6.4-8.2); SODIUM 144 mmol/L (136-145); UREA NITROGEN 9 mg/dL (7-18); eGFR NON AFRICAN AMERICAN > 90 mL/min (90-120)
[2019-01-10 05:38] VITALS: BP 125/78
--- NOTE | 2019-01-10 07:26 | NUR ---
PT AWAKE AND ORIENTED, LYING IN BED. STATES HE SLEPT GOOD LAST NIGHT AND CAN'T WAIT UNTIL HE GETS TO LEAVE. STATES THAT HE'S HAD SOME CHEST PRESSURE/PAIN, BUT HE THINKS IT'S ANXIETY BECAUSE IT GET'S RELIEVED WITH HIS SCHEDULED ATIVAN. NO COMPLAINTS/CONCERNS/COMMENTS/QUESTIONS AT THIS TIME. CL IN REACH,[id number]
[2019-01-10 08:31] VITALS: BP 151/91
--- NOTE | 2019-01-10 10:39 | NUR ---
I have reviewed this patient and I concur with the Shift Assessment completed by the Licensed Practical Nurse today this shift.
[2019-01-10 12:06] VITALS: BP 120/68
[2019-01-10 15:04] VITALS: BP 118/86
--- NOTE | 2019-01-10 19:52 | NUR ---
RECIEVED PT REPORT FROM SAEED SIEGEL. PT ALERTAND ORIENTED X4. RR EVEN AND UNLABORED. DC'D RIGHT FOREARM IV WITH CATHETER TIP IN PLACE. NO SWELLING OR REDNESS NOTED. RE-ESTABLISHED 20G IV IN LEFT FOREARM. IV PATENT BANANNA BAG GOING @125ML/HR. PT DENIES ANY PAIN OR FURTHER NEEDS AT THIS TIME. BED LOW CALL LIGHT WITHIN REACH. WILL CONTINUE TO MONITOR.
[2019-01-10 20:00] VITALS: BP 118/64
[2019-01-11] VITALS: BP 138/78
--- NOTE | 2019-01-11 03:56 | NUR ---
I have reviewed this patient and I concur with the Shift Assessment completed by the Licensed Practical Nurse today this shift.
[2019-01-11 04:00] VITALS: BP 134/69
[2019-01-11 05:39] LABS: BASOPHILS 0.5 % (0-2); EOSINOPHILS 1.9 % (0-7); HEMATOCRIT 32.2 % (42.0-54.0); HEMOGLOBIN 10.9 g/dL (13.5-17.5); IMMATURE GRANULOCYTES 0.3 % (0-5); MCH 35.2 pg (26.0-34.0); MCHC 33.9 g/dL (31.0-37.0); MEAN PLATELET VOLUME 10.3 fL (7.4-10.4); NEUTROPHILS 54.3 % (40-80); PLATELET COUNT 226 10x3/uL (130-400); RDW 13.9 % (11.5-14.5); WBC 7.6 10x3/uL (4.8-10.8)
[2019-01-11 05:58] LABS: MCV 103.9 fL (80.0-100.0)
[2019-01-11 06:18] LABS: ALBUMIN 2.5 g/dL (3.4-5.0); ALKALINE PHOSPHATASE 52 U/L (46-116); ALT (SGPT) 24 U/L (10-68); BILIRUBIN - TOTAL 0.18 mg/dL (0.2-1.3); CALCIUM 9.1 mg/dL (8.5-10.1); CARBON DIOXIDE 25.8 mmol/L (21.0-32.0); CHLORIDE - SERUM 113 mmol/L (98-107); CREATININE - SERUM 0.7 mg/dL (0.6-1.3); GLUCOSE 90 mg/dL (74-106); MAGNESIUM - SERUM 2.3 mg/dL (1.8-2.4); PROTEIN - SERUM 5.2 g/dL (6.4-8.2); SODIUM 145 mmol/L (136-145); eGFR NON AFRICAN AMERICAN > 90 mL/min (90-120)
[2019-01-11 06:30] LABS: CALC OSMOLALITY 288 mosm/kg (275-300); POTASSIUM - SERUM 4.2 mmol/L (3.5-5.1); UREA NITROGEN 12 mg/dL (7-18)
--- NOTE | 2019-01-11 07:40 | NUR ---
PT WAS UP WALKING THE HALLS, LOOKING LIKE HE WAS TRYING TO LEAVE. WHEN WE ASKED WHERE HE WAS GOING, PT STATED HE NEEDED TO GO TO THE BANK TODAY. I AGAIN EXPLAINED HE COULDN'T LEAVE UNTIL THE DR DISCHARGES HIM, FOR BOTH SAFTEY AND INSURANCES PURPOSES. PT STATES HE UNDERSTANDS AND WENT BACK TO BED FOR A NAP. NO OTHER COMPLAINTS/CONCNERNS THS MORNING, CL IN REACH, SRX2.
[2019-01-11 09:04] VITALS: BP 108/68
--- NOTE | 2019-01-11 09:31 | NUR ---
PT STATES HE DOES NOT WANT TO GO TO REHAB OR ANY LONG-TERM. HE STATES HE'S PREPARED TO GO HOME TODAY, BACK TO HIS HOUSE. PT STATES HE WON'T HAVE ANYONE WHO'S ABLE TO PICK HIM UP THOUGH. WILL SPEAK TO CASE MANAGMENT ABOUT THE SITUAITON.
--- NOTE | 2019-01-11 12:25 | MORECARE ---
CASE MANAGEMENT DISCHARGE SUMMARY PATIENT: ANGELI MOURA UNIT: [id number] ADM DATE: 01/04/19 AGE: 68 : 50 SEX: M ROOM/BED: D.2101 AUTHOR: JH,DOC PHYSICIAN: REFERRING PHYSICIAN: MANNY WOODRUFF DO DATE OF SERVICE: 01/11/19 Discharge Plan Patient Name: ANGELI MOURA Facility: [facility]:[place] : 1950 Planned Disposition: Care Home Facility Anticipated Discharge Date: 01/11/19 Discharge Date: Expected LOS: 7 Initial Reviewer: [id number] Initial Review Date: 01/04/2019 Generated: 01/11/19 1:25 pm Comments DCP- Discharge Planning Updated by [id number]: Janessa Rowell on 01/08/19 7:[address] 1000 - TC TO 2591 TO ADVISE THE PATIENT'S INSURANCE HAD BEEN UPDATED. HE HAS [facility] MEDICARE SOLUTIONS. SHE WILL PRECERT. 3958 - [facility] ADVISED I SEARCHED FOR A SKILLED FACILITY ON [facility] ON BOTH THE [place] [facility]. NO FACILITY FOUND. REVIEWED THE FACILITIES AND RATINGS FOUND ON THE INTERNET. HAD SPOKEN WITH THE PATIENT, HE SAID IT WAS LOCATED A FEW BLOCKS FROM [facility]. TC TO [facility]. CM WAS ADVISED [facility] WAS A FEW BLOCK AWAY WHICH IS AN ACUTE REHAB. TC TO [facility], FOR [facility]- [phone]. PACKET PREPARED FOR REFERRAL. CM RECEIVED TELEPHONE CALL FROM FELY MITCHELL, THE FACILITY'S NAME IS [facility] WHICH IS A SKILLED FACILITY. PT EVAL HAD BEEN COMPLETED WITH RECOMMENDATION FOR SNF OR REHAB. AWAIT OT EVAL. OT WILL NOT BE AVAILABLE UNTIL FRIDAY DUE TO ILLNESS. PATIENT WILL ALSO REQUIRE A PRECERT FROM HIS INSURANCE. CM DISCUSSED WITH THE PATIENT. HE IS IN AGREEMENT WITH THE REFERRAL DIRECTED BY THE EX-. PATIENT CONSENT OBTAINED. TC TO [phone]. REFERRED TO CASEY [facility]CHNICAL ARCHIT[facility], AT [phone]. CM FAXED REFERRAL TO [place] AFTER DISCUSSION W/ CASEY. SHE STATES THEY ARE CONTRACTED W/ [facility] MEDICARE SOLUTIONS. FAX NUMBER [phone]. AWAIT CALL FROM TECHNICAL ARCHITECT. DCP- Discharge Planning Updated by [id number]: Janessa Sorin on 01/07/19 5:[address] LATE ENTRY RECEIVED TELEPHONE CALL FROM [employer] WITH MED [employer]. HE HAS OBATINED THE NECESSARY INSURANCE INFORMATION. CM WILL BEGIN SEARCH FOR A FACILITY A PAYOR SOURCE HAS BEEN IDENTIFIED FOR SERVICES. DCP- Discharge Planning Updated by [id number]: Janessa Sorin on 01/06/19 6:[address] Patient Name: ANGELI MOURA Admission Status: Elective Accout number: [id number] Admission Date: 01-04-2019 : 1950 Admission Diagnosis: Attending: MANNY WOODRUFF Current LOS: 2 Anticipated DC Date: Planned Disposition: Care Home Facility Primary Insurance: UNINSURED DISCOUNT PLAN Discharge Planning Comments: LATE ENTRY CM MET WITH THE PATIENT AT THE BEDSIDE THIS EARLY AFTERNOON. HE WAS PLEASANT AND COOPERATIVE. HE IS STILL HAZY WHEN ANSWERING QUESTIONS. STATED HE HAS TWO SONS. STATED HE LIVES AT [address] [place] [address]. STATES HE LIVES ALONE. GIVE PHONE NUMBER FOR HIS SON- [phone]. THIS IS NOT THE SON'S PHONE NUMBER. HE DOES NOT HAVE A PCP. PHARMACY- [facility] IN [place]. STATES HE WAS IN A [facility] IN [place] 6 MONTHS AGO. HE CANNOT RECALL THE NAME. TC TO [facility] [place] [phone]. PATIENT HAD BEEN THERE PREVIOUSLY. HE WAS DISCHARGED IN 2017. CM ASK IF THEY HAD FAMILY CONTACT PHONE NUMBERS. OBTAINED PHONE NUMBER FOR PATIENT'S EX- . CM SPOKE W/ THE PATIENT. REC CONSENT TO CALL THE EXWIFE. TC TO CALI MOURA AT [phone]. SHE IS COGNIZANT OF PATIENT'S HOSPITALIZATION. SHE CAME UP TO SEE HIM AND SECURED HIS BELONGINGS. SHE WORKS TWO JOBS. SHE IS WILLING TO ASSIST W/ VINCENT. SHE FEELS HE SHOULD GO TO A SKILLED FACILITY IF POSSIBLE. SHE STATES HE DOES HAVE INSURANCE. SHE HAS HIS WALLET. SHE CHECKED AND HE HAS MULTIPLE INSURANCE CALLS. PAL PROVIDED HER WITH THE PHONE NUMBER FOR MED DATA. HE HAS A [facility] MEDICARE HEALTH CARD MEMBER # [id number] GRP [id number]. SHE DOES NOT HAVE HIS SS#. SHE STATES HE IS A . SHE DOES NOT KNOW IF HE UTILIZES [facility] CARE. SHE FEELS A FACILITY IN [place] WOULD BE BEST FOR THE PATIENT. SHE STATES HE NEEDS TO BE AWAY FROM PEOPLE WHO INFLUENCE HIM AND ENCOURAGES HIS HABITS. ?? [address] IN [place]. SHE HAD SPOKEN WITH HIS PRIMARY NURSE EARLIER TODAY. SHE WILL FOLLOW THRU W/ MED DATA REGARDING INSURANCE ISSUES. CM TO FOLLOW TO ASSIST W/ DC PLANNING. PATIENT WILL NEED TO BE MORE ORIENTED AND ALERT TO PARTICIPATE. CM TELEPHONED MED DATA AND SPOKE W/ MICHAEL. PROVIDED MICHAEL WITH EX- CONTACT INFORMATION. Wire Weaver: Janessa Rowell External Providers External Provider: OTHER-OTHER Next Contact Date: 01/11/2019 Service Request Date: Service Type: Resolution: Reviewer: Comments: Coverage Notice Reviewer: [id number] - Rafa Richardson Notice Issued Date-Time: 01/11/2019 11:50 Notice Type: IM Discharge Notice Notice Delivered To: Patient Relationship to Patient: Sales Operations Lead Name: Delivery Method: HAND - Hand Delivered Mer Days: Prior Verbal Notification: Recipient Understood Notice: Yes Recipient Signature: Yes Med Rec Note Co-signed by Attending: Coverage Notice Comment: Last DP export: 01/08/19 7:10 p Patient Name: ANGELI MOURA Page [id number] at 1225 All edits/amendments must be made on the electronic document DICTATION DATE: 01/11/19 1225 LEAD ANDROID DEVELOPER: TIANA 01/11/19 1225 RPT#: [id number] DC DATE: STATUS: ADM IN [facility] [address] [place] [address] END OF REPORT
--- NOTE | 2019-01-11 12:34 | MORECARE ---
CASE MANAGEMENT DISCHARGE SUMMARY PATIENT: ANGELI MOURA UNIT: [id number] ADM DATE: 01/04/19 AGE: 68 : 50 SEX: M ROOM/BED: D.2109 AUTHOR: JH,DOC PHYSICIAN: REFERRING PHYSICIAN: MANNY WOODRUFF DO DATE OF SERVICE: 01/11/19 Discharge Plan Patient Name: ANGELI MOURA Facility: [facility]:[place] : 1950 Planned Disposition: Group Home Facility Anticipated Discharge Date: 01/11/19 Discharge Date: Expected LOS: 7 Initial Reviewer: [id number] Initial Review Date: 01/04/2019 Generated: 01/11/19 1:34 pm Comments DCP- Discharge Planning Updated by [id number]: Rafa Richardson on 01/11/19 11:[address] Patient Name: ANGELI MOURA Encounter No: [id number] : 1950 Primary Insurance: [facility] MEDICARE SOLUTIONS Anticipated DC Date: 01-11-2019 Planned Disposition: Group Home Facility External Planned Provider: [facility] [place], MEDICARE REHAB BED DCP follow-up note: CM RECEIVED MESSAGE FROM BEDSIDE NURSE WHO INFORMED CM THAT PT DOES NOT WANT TO GO TO REHAB AND WANTS TO GO HOME; PT HAS NO ONE TO COME AND PICK HIM UP. CM REVIEWED CHART, MET WITH PT IN ROOM, DISCUSSED DISCHARGE PLANNING AND NEEDS. PT REPORTS HE NOW WANTS TO GO HOME AND NOT REHAB. PT STATES HE WILL NOT DRINK ALCOHOL ANY MORE. PT ASKED CM TO CALL HIS EX TO PICK HIM UP AND TAKE HIM HOME TODAY. PT HAS NO PRIMARY DOCTOR TO ASSIST WITH FOLLOWING HOME HEALTH ORDERS. PT DENIES NEED FOR THERAPY SERVICES, STATES HE IS WALKING WELL ENOUGH TO GO BACK HOME TO HIS APARTMENT. PT REPORTS HAVING A WALKER AND NEEDING NO OTHER MEDICAL EQUIPMENT. IMPORTANT MESSAGE FROM MEDICARE PROVIDED AND EXPLAINED. CM CALLED PT'S EX , CALI MOURA, ; CALI INFORMED CM THAT PT NEEDS TO GO TO REHAB DISCUSSED LAST WEEK, THERE IS NOT ONE TO "LOOK AFTER HIM AT HOME" THEY ALL WORK. CALI STATES THAT NO FAMILY IS GOING TO PICK HIM UP AND TAKE HIM HOME AND HE HAS TO GO TO REHAB FIRST BEFORE GOING HOME. CALI ALSO STATES THAT PT HAS TO STOP SMOKING THE "SYNTHETIC" AND DRINKING. CALI WANTS CM TO TELL PT WHAT SHE SAID. 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 PAL FAXED UPDATE TO CASEY OF [facility], . PAL CALLED AND SPOKE TO KAYY AT [facility], ; KAYY ADVISED THAT CASEY RECEIVED REFERRAL LAST WEEK AND THAT SHE WILL NOTIFY CASEY OF UPDATE WITH OCCUPATIONAL THERAPY NOTE TO SUBMIT TO INSURANCE FOR AUTHORIZATION OF REHAB AND THERAPY SERVICES. CM WAITING ADMISSION DETERMINATION FROM [facility] INSURANCE AUTHORIZATION FROM PT'S INSURANCE COMPANY FOR SNF REHAB SERVICES. Rafa Richardson, CASE MANAGEMENT DCP- Discharge Planning Updated by [id number]: Janessa Rowell on 01/08/19 7:[address] 1000 - TC TO 9551 TO ADVISE THE PATIENT'S INSURANCE HAD BEEN UPDATED. HE HAS [facility] MEDICARE SOLUTIONS. SHE WILL PRECERT. 7720 - TC TO HIS [place]. ADVISED I SEARCHED FOR A SKILLED FACILITY ON [facility] ON BOTH THE [place] AND [place] SIDES OF [place]. NO FACILITY FOUND. REVIEWED THE FACILITIES AND RATINGS FOUND ON THE INTERNET. HAD SPOKEN WITH THE PATIENT, HE SAID IT WAS LOCATED A FEW BLOCKS FROM [facility]. TC TO [facility]. CM WAS ADVISED [facility] WAS A FEW BLOCK AWAY WHICH IS AN ACUTE REHAB. TC TO [facility], FOR [facility]- [phone]. PACKET PREPARED FOR REFERRAL. PAL RECEIVED TELEPHONE CALL FROM FELY MITCHELL, THE FACILITY'S NAME IS [facility] WHICH IS A SKILLED FACILITY. PT EVAL HAD BEEN COMPLETED WITH RECOMMENDATION FOR SNF OR REHAB. AWAIT OT EVAL. OT WILL NOT BE AVAILABLE UNTIL FRIDAY DUE TO ILLNESS. PATIENT WILL ALSO REQUIRE A PRECERT FROM HIS INSURANCE. PAL DISCUSSED WITH THE PATIENT. HE IS IN AGREEMENT WITH THE REFERRAL DIRECTED BY THE EX-. PATIENT CONSENT OBTAINED. TC TO [phone]. REFERRED TO CASEY THE SLIVER HANDLER, AT [phone]. CM FAXED REFERRAL TO [place] AFTER DISCUSSION W/ CASEY. SHE STATES THEY ARE CONTRACTED / [facility] MEDICARE SOLUTIONS. FAX NUMBER [phone]. AWAIT CALL FROM SLIVER HANDLER. DCP- Discharge Planning Updated by [id number]: Janessa Rowell on 01/07/19 5:[address] LATE ENTRY RECEIVED TELEPHONE CALL FROM KEYONA WITH [employer]. HE HAS OBATINED THE NECESSARY INSURANCE INFORMATION. CM WILL BEGIN SEARCH FOR A FACILITY A PAYOR SOURCE HAS BEEN IDENTIFIED FOR SERVICES. DCP- Discharge Planning Updated by [id number]: Janessa Rowell on 01/06/19 6:[address] Patient Name: ANGELI MOURA Admission Status: Elective Accout number: [id number] Admission Date: 01-04-2019 : 1950 Admission Diagnosis: Attending: MANNY WOODRUFF Current LOS: 2 Anticipated DC Date: Planned Disposition: Group Home Facility Primary Insurance: UNINSURED DISCOUNT PLAN Discharge Planning Comments: LATE ENTRY CM MET WITH THE PATIENT AT THE BEDSIDE THIS EARLY AFTERNOON. HE WAS PLEASANT AND COOPERATIVE. HE IS STILL HAZY WHEN ANSWERING QUESTIONS. STATED HE HAS TWO SONS. STATED HE LIVES AT [address] [place] [address]. STATES HE LIVES ALONE. GIVE PHONE NUMBER FOR HIS SON- [phone]. THIS IS NOT THE SON'S PHONE NUMBER. HE DOES NOT HAVE A PCP. [facility] IN [place]. STATES HE WAS IN A SNF IN [place] 6 MONTHS AGO. HE CANNOT RECALL THE NAME. TC TO [facility] IN [place] [phone]. PATIENT HAD BEEN THERE PREVIOUSLY. HE WAS DISCHARGED IN 2017. CM ASK IF THEY HAD FAMILY CONTACT PHONE NUMBERS. OBTAINED PHONE NUMBER FOR PATIENT'S EX- . CM SPOKE W/ THE PATIENT. REC CONSENT TO CALL THE EXWIFE. TC TO CALI MOURA AT [phone]. SHE IS COGNIZANT OF PATIENT'S HOSPITALIZATION. SHE CAME UP TO SEE HIM AND SECURED HIS BELONGINGS. SHE WORKS TWO JOBS. SHE IS WILLING TO ASSIST W/ DISCHARHE. SHE FEELS HE SHOULD GO TO A SKILLED FACILITY IF POSSIBLE. SHE STATES HE DOES HAVE INSURANCE. SHE HAS HIS WALLET. SHE CHECKED AND HE HAS MULTIPLE INSURANCE CALLS. PAL PROVIDED HER WITH THE PHONE NUMBER FOR MED DATA. HE HAS A [facility] MEDICARE HEALTH CARD MEMBER # [id number] GRP [id number]. SHE DOES NOT HAVE HIS SS#. SHE STATES HE IS A . SHE DOES NOT KNOW IF HE UTILIZES VA CARE. SHE FEELS A FACILITY IN [place] WOULD BE BEST FOR THE PATIENT. SHE STATES HE NEEDS TO BE AWAY FROM PEOPLE WHO INFLUENCE HIM AND ENCOURAGES HIS HABITS. ?? [address] IN [place]. SHE HAD SPOKEN WITH HIS PRIMARY NURSE EARLIER TODAY. SHE WILL FOLLOW THRU W/ MED DATA REGARDING INSURANCE ISSUES. CM TO FOLLOW TO ASSIST W/ DC PLANNING. PATIENT WILL NEED TO BE MORE ORIENTED AND ALERT TO PARTICIPATE. CM TELEPHONED MED DATA AND SPOKE W/ MICHAEL. PROVIDED MICHAEL WITH EX- CONTACT INFORMATION. Public Relations Account Supervisor: Janessa Rowell Coverage Notice Reviewer: [id number] William Richardson Notice Issued Date-Time: 01/11/2019 11:50 Notice Type: IM Discharge Notice Notice Delivered To: Patient Relationship to Patient: Assisted Sales Representative Name: Delivery Method: HAND - Hand Delivered Mer Days: Prior Verbal Notification: Recipient Understood Notice: Yes Recipient Signature: Yes Med Rec Note Co-signed by Attending: Coverage Notice Comment: Last DP export: 01/11/19 11:25 a Patient Name: ANGELI MOURA Page [id number] at 1234 All edits/amendments must be made on the electronic document DICTATION DATE: 01/11/19 1233 PORTER BAGGAGE: TIANA 01/11/19 1233 RPT#: [id number] DC DATE: STATUS: ADM IN [facility] [address] [place] [address] END OF REPORT
--- NOTE | 2019-01-11 12:51 | NUR ---
I have reviewed this patient and I concur with the Shift Assessment completed by the Licensed Practical Nurse today this shift.
--- NOTE | 2019-01-11 14:28 | NUR ---
OT NOTE: PT COMPLETED ADL MOB WITH SPV. PT COMPLETED SIT TO STAND WITH SPV. PT COMPLETED TOILETING TASKS WITH SBA. PT COMPLETED HYGIENE TASKS WITH SBA. THANK YOU, KAROLYN MARTE
--- NOTE | 2019-01-11 14:54 | NUR ---
PT CHANGED HIS MIND ABOUT REHAB AFTER LEARNING FROM CASE MANAGMENT THAT HIS FAMILY, WHEN CALLED, REFUSED TO COME AND GET HIM. HE WOULD HAVE NO TRANSPORTATION OR PLACE TO GO, SO HE DECIDED HE'D GO AHEAD AND GO TO A REHAB FACILITY. INFORMED YOLI MARQUEZ OF THE PATIENCE CHANGE OF HEART.
[2019-01-11 17:08] VITALS: BP 122/71
[2019-01-11 18:38] VITALS: BP 119/72
--- NOTE | 2019-01-11 19:35 | NUR ---
pt alert and ox4 denies needs at this time. bed is low and locked and call light is in reach SKIN WARM AND DRY LCTA AND IV PATENT INFUSING AT 125
[2019-01-11 20:00] VITALS: BP 135/77
[2019-01-12] VITALS: BP 142/75
[2019-01-12 04:00] VITALS: BP 110/55
--- NOTE | 2019-01-12 04:20 | NUR ---
I have reviewed this patient and I concur with the Shift Assessment completed by the Licensed Practical Nurse today this shift.
[2019-01-12 06:10] LABS: BASOPHILS 0.4 % (0-2); EOSINOPHILS 1.6 % (0-7); HEMATOCRIT 31.8 % (42.0-54.0); HEMOGLOBIN 10.9 g/dL (13.5-17.5); IMMATURE GRANULOCYTES 0.3 % (0-5); LYMPHOCYTES 31.6 % (15-50); MCH 35.5 pg (26.0-34.0); MCHC 34.3 g/dL (31.0-37.0); MCV 103.6 fL (80.0-100.0); MONOCYTES 11.8 % (2-11); NEUTROPHILS 54.3 % (40-80); PLATELET COUNT 241 10x3/uL (130-400); RBC 3.07 10x6/uL (4.20-6.10); WBC 7.4 10x3/uL (4.8-10.8)
[2019-01-12 06:48] LABS: ALBUMIN 2.4 g/dL (3.4-5.0); ALKALINE PHOSPHATASE 50 U/L (46-116); ALT (SGPT) 27 U/L (10-68); BILIRUBIN - TOTAL 0.22 mg/dL (0.2-1.3); CALC OSMOLALITY 286 mosm/kg (275-300); CALCIUM 9.1 mg/dL (8.5-10.1); CARBON DIOXIDE 25.2 mmol/L (21.0-32.0); CHLORIDE - SERUM 111 mmol/L (98-107); CREATININE - SERUM 0.8 mg/dL (0.6-1.3); GLUCOSE 94 mg/dL (74-106); MAGNESIUM - SERUM 2.2 mg/dL (1.8-2.4); POTASSIUM - SERUM 3.9 mmol/L (3.5-5.1); PROTEIN - SERUM 5.5 g/dL (6.4-8.2); SODIUM 144 mmol/L (136-145); UREA NITROGEN 12 mg/dL (7-18); eGFR NON AFRICAN AMERICAN > 90 mL/min (90-120)
[2019-01-12 08:20] VITALS: BP 135/64
--- NOTE | 2019-01-12 08:44 | NUR ---
OT NOTE: PT PERFORMED WELL TODAY. REPORTED THAT HE DID NOT SLEEP AGAIN LAST NIGHT. PT ABLE TO AMB TO BATHROOM WITH SBA; PERFORMED HAND AND FACE WASHING WITH SET UP; UP TO EOB WITH SPV TO DRINK COFFEE. STATED THAT HE DID NOT WANT TO GET UP TO CHAIR AT THIS TIME. CRISTHIAN SANTANA, OTR/L
--- NOTE | 2019-01-12 09:16 | MORECARE ---
CASE MANAGEMENT DISCHARGE SUMMARY PATIENT: ANGELI MOURA UNIT: [id number] ADM DATE: 01/04/19 AGE: 68 : 50 SEX: M ROOM/BED: D.2109 AUTHOR: JH,ALAN PHYSICIAN: REFERRING PHYSICIAN: MANNY WOODRUFF DO DATE OF SERVICE: 01/12/19 Discharge Plan Patient Name: ANGELI MOURA Facility: [facility]:[place] : 1950 Planned Disposition: Usp Facility Anticipated Discharge Date: 01/11/19 Discharge Date: Expected LOS: 7 Initial Reviewer: [id number] Initial Review Date: 01/04/2019 Generated: 01/12/19 10:16 am Comments DCP- Discharge Planning Updated by [id number]: Rafa Richardson on 01/12/19 8:[address] Patient Name: ANGELI MOURA Encounter No: [id number] : 1950 Primary Insurance: [facility] MEDICARE SOLUTIONS Anticipated DC Date: 01-11-2019 Planned Disposition: Usp Facility External Planned Provider: [facility], MEDICARE REHAB BED DCP follow-up note: CM FAXED UPDATE TO CASEY OF [facility], . [facility] PLANS TO ACCEPT IF INSURANCE WILL AUTHORIZE REHAB SERVICES. CM WAITING INSURANCE AUTHORIZATION FROM PT'S INSURANCE COMPANY FOR [facility] RE[facility] SERVICES. SHARRON Montoya DCP- Discharge Planning Updated by [id number]: Rafa Richardson on 01/11/19 11:[address] Patient Name: ANGELI MOURA Encounter No: [id number] : 1950 Primary Insurance: [facility] MEDICARE SOLUTIONS Anticipated DC Date: 01-11-2019 Planned Disposition: Usp Facility External Planned Provider: [facility], MEDICARE REHAB BED DCP follow-up note: CM RECEIVED MESSAGE FROM BEDSIDE NURSE WHO INFORMED CM THAT PT DOES NOT WANT TO GO TO REHAB AND WANTS TO GO HOME; PT HAS NO ONE TO COME AND PICK HIM UP. CM REVIEWED CHART, MET WITH PT IN ROOM, DISCUSSED DISCHARGE PLANNING AND NEEDS. PT REPORTS HE NOW WANTS TO GO HOME AND NOT REHAB. PT STATES HE WILL NOT DRINK ALCOHOL ANY MORE. PT ASKED CM TO CALL HIS EX TO PICK HIM UP AND TAKE HIM HOME TODAY. PT HAS NO PRIMARY DOCTOR TO ASSIST WITH FOLLOWING HOME HEALTH ORDERS. PT DENIES NEED FOR THERAPY SERVICES, STATES HE IS WALKING WELL ENOUGH TO GO BACK HOME TO HIS APARTMENT. PT REPORTS HAVING A WALKER AND NEEDING NO OTHER MEDICAL EQUIPMENT. IMPORTANT MESSAGE FROM MEDICARE PROVIDED AND EXPLAINED. CM CALLED PT'S EX , CALI MOURA, ; CALI INFORMED CM THAT PT NEEDS TO GO TO REHAB DISCUSSED LAST WEEK, THERE IS NOT ONE TO "LOOK AFTER HIM AT HOME" THEY ALL WORK. CALI STATES THAT NO FAMILY IS GOING TO PICK HIM UP AND TAKE HIM HOME AND HE HAS TO GO TO REHAB FIRST BEFORE GOING HOME. CALI ALSO STATES THAT PT HAS TO STOP SMOKING THE "SYNTHETIC" AND DRINKING. CALI WANTS CM TO TELL PT WHAT SHE SAID. CM SPOKE TO PT IN ROOM, AFTER HEARING WHAT HIS EX HAD TO SAY, PT STATES HE WILL GO TO REHAB AT THE PLACE HE WAS LAST IN [place] THAT HIS EX AND THE LADY [employer] STILL OPERATOR WAS WORKING ON LAST WEEK. PAL [facility], . CM CALLED AND SPOKE TO KAYY AT [facility], ; KAYY ADVISED THAT CASEY RECEIVED REFERRAL LAST WEEK AND THAT SHE WILL NOTIFY CASEY OF UPDATE WITH OCCUPATIONAL THERAPY NOTE TO SUBMIT TO INSURANCE FOR AUTHORIZATION OF REHAB AND THERAPY SERVICES. CM WAITING ADMISSION DETERMINATION FROM [facility] INSURANCE AUTHORIZATION FROM PT'S INSURANCE COMPANY FOR [facility] SERVICES. Rafa Richardson, CASE MANAGEMENT DCP- Discharge Planning Updated by [id number]: Janessa Rowell on 01/08/19 7:[address] 1000 - TC TO 4237 TO ADVISE THE PATIENT'S INSURANCE HAD BEEN UPDATED. HE HAS [facility] MEDICARE SOLUTIONS. SHE WILL PRECERT. 1130 - TC TO HIS EXWIFE. ADVISED I SEARCHED FOR A SKILLED FACILITY ON [facility] ON BOTH THE [place] SIDES OF [place]. NO FACILITY FOUND. REVIEWED THE FACILITIES AND RATINGS FOUND ON THE INTERNET. HAD SPOKEN WITH THE PATIENT, HE SAID IT WAS LOCATED A FEW BLOCKS FROM [facility]. TC TO [facility]. CM WAS ADVISED [facility] WAS A FEW BLOCK AWAY WHICH IS AN ACUTE REHAB. TC TO [facility], FOR [facility]- [phone]. PACKET PREPARED FOR REFERRAL. CM RECEIVED TELEPHONE CALL FROM FELY MITCHELL, THE FACILITY'S NAME IS [facility] WHICH IS A SKILLED FACILITY. PT EVAL HAD BEEN COMPLETED WITH RECOMMENDATION FOR SNF OR REHAB. AWAIT OT EVAL. OT WILL NOT BE AVAILABLE UNTIL FRIDAY DUE TO ILLNESS. PATIENT WILL ALSO REQUIRE A PRECERT FROM HIS INSURANCE. CM DISCUSSED WITH THE PATIENT. HE IS IN AGREEMENT WITH THE REFERRAL DIRECTED BY THE EX-. PATIENT CONSENT OBTAINED. TC TO [phone]. REFERRED TO CASEY THE DESIGN DIRECTOR, AT [phone]. CM FAXED REFERRAL TO [place] AFTER DISCUSSION W/ CASEY. SHE STATES THEY ARE CONTRACTED / [facility] MEDICARE SOLUTIONS. FAX NUMBER [phone]. AWAIT CALL FROM DESIGN DIRECTOR. DCP- Discharge Planning Updated by [id number]: Janessa Rowell on 01/07/19 5:[address] LATE ENTRY RECEIVED TELEPHONE CALL FROM KEYONA WITH [employer]. HE HAS OBATINED THE NECESSARY INSURANCE INFORMATION. CM WILL BEGIN SEARCH FOR A FACILITY A PAYOR SOURCE HAS BEEN IDENTIFIED FOR SERVICES. DCP- Discharge Planning Updated by [id number]: Janessa Rowell on 01/06/19 6:[address] Patient Name: ANGELI MOURA Admission Status: Elective Accout number: [id number] Admission Date: 01-04-2019 : 1950 Admission Diagnosis: Attending: MANNY WOODRUFF Current LOS: 2 Anticipated DC Date: Planned Disposition: Usp Facility Primary Insurance: UNINSURED DISCOUNT PLAN Discharge Planning Comments: LATE ENTRY CM MET WITH THE PATIENT AT THE BEDSIDE THIS EARLY AFTERNOON. HE WAS PLEASANT AND COOPERATIVE. HE IS STILL HAZY WHEN ANSWERING QUESTIONS. STATED HE HAS TWO SONS. STATED HE LIVES AT [address] [place] [address]. STATES HE LIVES ALONE. GIVE PHONE NUMBER FOR HIS SON- [phone]. THIS IS NOT THE SON'S PHONE NUMBER. HE DOES NOT HAVE A PCP. PHARMACY- [facility] IN [place]. STATES HE WAS IN A GROUP HOME IN [place] 6 MONTHS AGO. HE CANNOT RECALL THE NAME. TC TO [facility] IN [place] [phone]. PATIENT HAD BEEN THERE PREVIOUSLY. HE WAS DISCHARGED IN 2017. CM ASK IF THEY HAD FAMILY CONTACT PHONE NUMBERS. OBTAINED PHONE NUMBER FOR PATIENT'S EX- . CM SPOKE W/ THE PATIENT. REC CONSENT TO CALL THE EXWIFE. TC TO CALI MOURA AT [phone]. SHE IS COGNIZANT OF PATIENT'S HOSPITALIZATION. SHE CAME UP TO SEE HIM AND SECURED HIS BELONGINGS. SHE WORKS TWO JOBS. SHE IS WILLING TO ASSIST W/ DISCHARHE. SHE FEELS HE SHOULD GO TO A SKILLED FACILITY IF POSSIBLE. SHE STATES HE DOES HAVE INSURANCE. SHE HAS HIS WALLET. SHE CHECKED AND HE HAS MULTIPLE INSURANCE CALLS. CM PROVIDED HER WITH THE PHONE NUMBER FOR MED DATA. HE HAS A [facility] MEDICARE HEALTH CARD MEMBER # [id number] [facility] [id number]. SHE DOES NOT HAVE HIS SS#. SHE STATES HE IS A . SHE DOES NOT KNOW IF HE UTILIZES VA CARE. SHE FEELS A FACILITY IN [place] WOULD BE BEST FOR THE PATIENT. SHE STATES HE NEEDS TO BE AWAY FROM PEOPLE WHO INFLUENCE HIM AND ENCOURAGES HIS HABITS. ?? [address] IN [place]. SHE HAD SPOKEN WITH HIS PRIMARY NURSE EARLIER TODAY. SHE WILL FOLLOW THRU W/ MED DATA REGARDING INSURANCE ISSUES. CM TO FOLLOW TO ASSIST W/ DC PLANNING. PATIENT WILL NEED TO BE MORE ORIENTED AND ALERT TO PARTICIPATE. CM TELEPHONED MED DATA AND SPOKE W/ MICHAEL. PROVIDED MICHAEL WITH EX- CONTACT INFORMATION. Cardiovascular Radiologic Technologist: Janessa Rowell Coverage Notice Reviewer: [id number] - Rafa Richardson Notice Issued Date-Time: 01/11/2019 11:50 Notice Type: IM Discharge Notice Notice Delivered To: Patient Relationship to Patient: Rn Hyperbaric Name: Delivery Method: HAND - Hand Delivered Mer Days: Prior Verbal Notification: Recipient Understood Notice: Yes Recipient Signature: Yes Med Rec Note Co-signed by Attending: Coverage Notice Comment: Last DP export: 01/11/19 11:34 a Patient Name: ANGELI MOURA Page 07005 at 0916 All edits/amendments must be made on the electronic document DICTATION DATE: 01/12/19915 WINDOW TRIMMER APPRENTICE: TIANA 01/12/19915 RPT#: [id number] DC DATE: STATUS: ADM IN [facility] [address] [place] [address] END OF REPORT
[2019-01-12 12:31] VITALS: BP 129/78
[2019-01-12 18:42] VITALS: BP 141/81
--- NOTE | 2019-01-12 19:05 | NUR ---
UP AMBLITORY AND DENIES NEEDS AWAITING REHAB PLACEMENT LCTA AND IV IS PATENT DENIES NEEDS BROUGHT COFFEE AND ASSISTED WITH COMFORT BED IS LOW AND LOCKED PT EXPRESSES KNOWLEDGE OF THE CALL BUTTON
[2019-01-12 20:00] VITALS: BP 119/68
[2019-01-13] VITALS: BP 139/81
--- NOTE | 2019-01-13 02:04 | NUR ---
PT FORGOT HE WAS ATTACHED TO IV AND WALKED AWAY DCING IV CATH INTACT. PT WISHES IT TO REMAIN OUT FOR NOW
--- NOTE | 2019-01-13 02:33 | NUR ---
I have reviewed this patient and I concur with the Shift Assessment completed by the Licensed Practical Nurse today this shift.
[2019-01-13 04:00] VITALS: BP 117/74
--- NOTE | 2019-01-13 08:08 | MORECARE ---
CASE MANAGEMENT DISCHARGE SUMMARY PATIENT: ANGELI MOURA UNIT: [id number] ADM DATE: 01/04/19 AGE: 68 : 50 SEX: M ROOM/BED: D.2109 AUTHOR: ALAN PEÑALOZA PHYSICIAN: REFERRING PHYSICIAN: MANNY WOODRUFF DO DATE OF SERVICE: 01/13/19 Discharge Plan Patient Name: ANGELI MOURA Facility: [facility]:[place] : 1950 Planned Disposition: Shelter Facility Anticipated Discharge Date: 01/11/19 Discharge Date: Expected LOS: 7 Initial Reviewer: [id number] Initial Review Date: 01/04/2019 Generated: 01/13/19 9:07 am Comments DCP- Discharge Planning Updated by [id number]: Rafa Richardson on 01/13/19 7:[address] Patient Name: ANGELI MOURA Encounter No: [id number] : 1950 Primary Insurance: [facility] [employer] Anticipated DC Date: 01-11-2019 Planned Disposition: Shelter Facility External Planned Provider: [facility], MEDICARE REHAB BED DCP follow-up note: CM FAXED UPDATE TO [facility], . [facility] PLANS TO ACCEPT IF INSURANCE WILL AUTHORIZE REHAB SERVICES. CM WAITING INSURANCE AUTHORIZATION FROM PT'S INSURANCE COMPANY FOR GROUP HOME REHAB SERVICES. SHARRON Montoya DCP- Discharge Planning Updated by [id number]: Rafa Richardson on 01/12/19 8:[address] Patient Name: ANGELI MOURA Encounter No: [id number] : 1950 Primary Insurance: [facility] [employer] [employer] Anticipated DC Date: 01-11-2019 Planned Disposition: Shelter Facility External Planned Provider: [facility], MEDICARE REHAB BED DCP follow-up note: CM FAXED UPDATE TO [facility], . [facility] PLANS TO ACCEPT IF INSURANCE WILL AUTHORIZE REHAB SERVICES. CM WAITING INSURANCE AUTHORIZATION FROM PT'S INSURANCE COMPANY FOR GROUP HOME REHAB SERVICES. Rafa Richardson, CASE MANAGEMENT DCP- Discharge Planning Updated by [id number]: Rafa Richardson on 01/11/19 11:[address] Patient Name: ANGELI MOURA Encounter No: [id number] : 1950 Primary Insurance: [facility] [employer] [employer] Anticipated DC Date: 01-11-2019 Planned Disposition: Shelter Facility External Planned Provider: [facility], MEDICARE REHAB BED DCP follow-up note: CM RECEIVED MESSAGE FROM BEDSIDE NURSE WHO INFORMED CM THAT PT DOES NOT WANT TO GO TO REHAB AND WANTS TO GO HOME; PT HAS NO ONE TO COME AND PICK HIM UP. CM REVIEWED CHART, MET WITH PT IN ROOM, DISCUSSED DISCHARGE PLANNING AND NEEDS. PT REPORTS HE NOW WANTS TO GO HOME AND NOT REHAB. PT STATES HE WILL NOT DRINK ALCOHOL ANY MORE. PT ASKED CM TO CALL HIS EX TO PICK HIM UP AND TAKE HIM HOME TODAY. PT HAS NO PRIMARY DOCTOR TO ASSIST WITH FOLLOWING HOME HEALTH ORDERS. PT DENIES NEED FOR THERAPY SERVICES, STATES HE IS WALKING WELL ENOUGH TO GO BACK HOME TO HIS APARTMENT. PT REPORTS HAVING A WALKER AND NEEDING NO OTHER MEDICAL EQUIPMENT. IMPORTANT MESSAGE FROM MEDICARE PROVIDED AND EXPLAINED. CM CALLED PT'S EX , CALI MOURA, ; CALI INFORMED CM THAT PT NEEDS TO GO TO REHAB DISCUSSED LAST WEEK, THERE IS NOT ONE TO "LOOK AFTER HIM AT HOME" THEY ALL WORK. CALI STATES THAT NO FAMILY IS GOING TO PICK HIM UP AND TAKE HIM HOME AND HE HAS TO GO TO REHAB FIRST BEFORE GOING HOME. CALI ALSO STATES THAT PT HAS TO STOP SMOKING THE "SYNTHETIC" AND DRINKING. CALI WANTS CM TO TELL PT WHAT SHE SAID. CM SPOKE TO PT IN ROOM, AFTER HEARING WHAT HIS EX HAD TO SAY, PT STATES HE WILL GO TO REHAB AT THE PLACE HE WAS LAST IN [place] THAT HIS EX AND THE LADY SEISMIC OBSERVER WAS WORKING ON LAST WEEK. PAL FAXED UPDATE TO [facility] OF [facility], . PAL CALLED AND SPOKE TO KAYY AT [facility], ; KAYY ADVISED THAT [facility] RECEIVED REFERRAL LAST WEEK AND THAT SHE WILL NOTIFY [facility] OF UPDATE WITH OCCUPATIONAL THERAPY NOTE TO SUBMIT TO INSURANCE FOR AUTHORIZATION OF REHAB AND THERAPY SERVICES. CM WAITING ADMISSION DETERMINATION FROM [facility] INSURANCE AUTHORIZATION FROM PT'S INSURANCE COMPANY FOR GROUP HOME REHAB SERVICES. Rafa Richardson, CASE MANAGEMENT DCP- Discharge Planning Updated by [id number]: Janessa Rowell on 01/08/19 7:[address] 1000 - TC TO 2591 TO ADVISE THE PATIENT'S INSURANCE HAD BEEN UPDATED. HE HAS [facility] [employer] SOL[employer]IONS. SHE WILL PRECERT. 1130 - TC TO HIS EXWIFE. ADVISED I SEARCHED FOR A SKILLED FACILITY ON [facility] ON BOTH THE [place] [address] [facility]. NO FACILITY FOUND. REVIEWED THE FACILITIES AND RATINGS FOUND ON THE INTERNET. HAD SPOKEN WITH THE PATIENT, HE SAID IT WAS LOCATED A FEW BLOCKS FROM [facility]. TC TO [facility]. CM WAS ADVISED [facility] WAS A FEW BLOCK AWAY WHICH IS AN ACUTE REHAB. TC TO [facility], FOR [facility]- [phone]. PACKET PREPARED FOR REFERRAL. CM RECEIVED TELEPHONE CALL FROM FELY MITCHELL, THE FACILITY'S NAME IS [facility] WHICH IS A SKILLED FACILITY. PT EVAL HAD BEEN COMPLETED WITH RECOMMENDATION FOR SNF OR REHAB. AWAIT OT EVAL. OT WILL NOT BE AVAILABLE UNTIL FRIDAY DUE TO ILLNESS. PATIENT WILL ALSO REQUIRE A PRECERT FROM HIS INSURANCE. CM DISCUSSED WITH THE PATIENT. HE IS IN AGREEMENT WITH THE REFERRAL DIRECTED BY THE EX-. PATIENT CONSENT OBTAINED. TC TO [phone]. REFERRED TO [facility]NA[facility], AT [phone]. CM FAXED REFERRAL TO [place] AFTER DISCUSSION W/ [facility]. SHE STATES THEY ARE CONTRACTED W/ [facility] [employer]. FAX NUMBER [phone]. AWAIT CALL FROM APPLICATIONS ENGINEERING MANAGER. DCP- Discharge Planning Updated by [id number]: Janessa Rowell on 01/07/19 5:[address] LATE ENTRY RECEIVED TELEPHONE CALL FROM KEYONA WITH [employer]. HE HAS OBATINED THE NECESSARY INSURANCE INFORMATION. CM WILL BEGIN SEARCH FOR A FACILITY A PAYOR SOURCE HAS BEEN IDENTIFIED FOR SERVICES. DCP- Discharge Planning Updated by [id number]: Janessa Rowell on 01/06/19 6:[address] Patient Name: ANGELI MOURA Admission Status: Elective Accout number: [id number] Admission Date: 01-04-2019 : 1950 Admission Diagnosis: Attending: MANNY WOODRUFF Current LOS: 2 Anticipated DC Date: Planned Disposition: Shelter Facility Primary Insurance: UNINSURED DISCOUNT PLAN Discharge Planning Comments: LATE ENTRY CM MET WITH THE PATIENT AT THE BEDSIDE THIS EARLY AFTERNOON. HE WAS PLEASANT AND COOPERATIVE. HE IS STILL HAZY WHEN ANSWERING QUESTIONS. STATED HE HAS TWO SONS. STATED HE LIVES AT [address] [place] [address]. STATES HE LIVES ALONE. GIVE PHONE NUMBER FOR HIS SON- [phone]. THIS IS NOT THE SON'S PHONE NUMBER. HE DOES NOT HAVE A PCP. PHARMACY- [facility] IN [place]. STATES HE WAS IN A DETENTION IN [place] 6 MONTHS AGO. HE CANNOT RECALL THE NAME. TC TO [facility] IN [place] [phone]. PATIENT HAD BEEN THERE PREVIOUSLY. HE WAS DISCHARGED IN 2017. CM ASK IF THEY HAD FAMILY CONTACT PHONE NUMBERS. OBTAINED PHONE NUMBER FOR PATIENT'S EX- . CM SPOKE W/ THE PATIENT. REC CONSENT TO CALL THE EXWIFE. TC TO CALI MOURA AT [phone]. SHE IS COGNIZANT OF PATIENT'S HOSPITALIZATION. SHE CAME UP TO SEE HIM AND SECURED HIS BELONGINGS. SHE WORKS TWO JOBS. SHE IS WILLING TO ASSIST W/ DISCHARHE. SHE FEELS HE SHOULD GO TO A SKILLED FACILITY IF POSSIBLE. SHE STATES HE DOES HAVE INSURANCE. SHE HAS HIS WALLET. SHE CHECKED AND HE HAS MULTIPLE INSURANCE CALLS. CM PROVIDED HER WITH THE PHONE NUMBER FOR MED DATA. HE HAS A [facility] MEDICARE HEALTH CARD MEMBER # [id number] GRP [id number]. SHE DOES NOT HAVE HIS SS#. SHE STATES HE IS A . SHE DOES NOT KNOW IF HE UTILIZES [facility]. SHE FEELS A FACILITY IN [place] WOULD BE BEST FOR THE PATIENT. SHE STATES HE NEEDS TO BE AWAY FROM PEOPLE WHO INFLUENCE HIM AND ENCOURAGES HIS HABITS. ?? [facility] [place]. SHE HAD SPOKEN WITH HIS PRIMARY NURSE EARLIER TODAY. SHE WILL FOLLOW THRU W/ MED DATA REGARDING INSURANCE ISSUES. CM TO FOLLOW TO ASSIST W/ DC PLANNING. PATIENT WILL NEED TO BE MORE ORIENTED AND ALERT TO PARTICIPATE. CM TELEPHONED MED DATA AND SPOKE W/ MICHAEL. PROVIDED MICHAEL WITH EX- CONTACT INFORMATION. Geoduck Diver: Janessa Rowell Coverage Notice Reviewer: [id number] - Rafa Richardson Notice Issued Date-Time: 01/11/2019 11:50 Notice Type: IM Discharge Notice Notice Delivered To: Patient Relationship to Patient: Secondary Education Professor Name: Delivery Method: HAND - Hand Delivered Mer Days: Prior Verbal Notification: Recipient Understood Notice: Yes Recipient Signature: Yes Med Rec Note Co-signed by Attending: Coverage Notice Comment: Last DP export: 01/12/19 8:16 a Patient Name: ANGELI MOURA Page [id number] at 0808 All edits/amendments must be made on the electronic document DICTATION DATE: 01/13/19806 SEXER: TIANA 01/13/19806 RPT#: [id number] DC DATE: STATUS: ADM IN [facility] [address] [place] [address] END OF REPORT
[2019-01-13 09:23] VITALS: BP 129/61
--- NOTE | 2019-01-13 11:45 | MORECARE ---
CASE MANAGEMENT DISCHARGE SUMMARY PATIENT: ANGELI MOURA UNIT: [id number] ADM DATE: 01/04/19 AGE: 68 : 50 SEX: M ROOM/BED: D.2109 AUTHOR: ALAN PEÑALOZA PHYSICIAN: REFERRING PHYSICIAN: MANNY WOODRUFF DO DATE OF SERVICE: 01/13/19 Discharge Plan Patient Name: ANGELI MOURA Facility: [facility]:[place] : 1950 Planned Disposition: Retirement Facility Anticipated Discharge Date: 01/13/19 Discharge Date: Expected LOS: 9 Initial Reviewer: [id number] Initial Review Date: 01/04/2019 Generated: 01/13/19 12:45 pm Comments DCP- Discharge Planning Updated by [id number]: Rafa Richardson on 01/13/19 7:[address] Patient Name: ANGELI MOURA Encounter No: [id number] : 1950 Primary Insurance: [facility] MEDIC[employer] SOLUTIONS Anticipated DC Date: 01-11-2019 Planned Disposition: Retirement Facility External Planned Provider: [facility], MEDICARE REHAB BED DCP follow-up note: CM FAXED UPDATE TO [facility], . [facility] PLANS TO ACCEPT IF INSURANCE WILL AUTHORIZE REHAB SERVICES. CM WAITING INSURANCE AUTHORIZATION FROM PT'S INSURANCE COMPANY FOR SHELTER REHAB SERVICES. SHARRON Montoya DCP- Discharge Planning Updated by [id number]: Rafa Richardson on 01/12/19 8:[address] Patient Name: ANGELI MOURA Encounter No: [id number] : 1950 Primary Insurance: [facility] MED[employer] SOLUTIONS Anticipated DC Date: 01-11-2019 Planned Disposition: Retirement Facility External Planned Provider: [facility], MEDICARE REHAB BED DCP follow-up note: CM FAXED UPDATE TO [facility], . [facility] PLANS TO ACCEPT IF INSURANCE WILL AUTHORIZE REHAB SERVICES. CM WAITING INSURANCE AUTHORIZATION FROM PT'S INSURANCE COMPANY FOR SHELTER REHAB SERVICES. Rafa Richardson, CASE MANAGEMENT DCP- Discharge Planning Updated by [id number]: Rafa Richardson on 01/11/19 11:[address] Patient Name: ANGELI MOURA Encounter No: [id number] : 1950 Primary Insurance: [facility] MEDIC[employer] SOLUTIONS Anticipated DC Date: 01-11-2019 Planned Disposition: Retirement Facility External Planned Provider: [facility] [place], MEDICARE REHAB BED DCP follow-up note: CM RECEIVED MESSAGE FROM BEDSIDE NURSE WHO INFORMED CM THAT PT DOES NOT WANT TO GO TO REHAB AND WANTS TO GO HOME; PT HAS NO ONE TO COME AND PICK HIM UP. CM REVIEWED CHART, MET WITH PT IN ROOM, DISCUSSED DISCHARGE PLANNING AND NEEDS. PT REPORTS HE NOW WANTS TO GO HOME AND NOT REHAB. PT STATES HE WILL NOT DRINK ALCOHOL ANY MORE. PT ASKED CM TO CALL HIS EX TO PICK HIM UP AND TAKE HIM HOME TODAY. PT HAS NO PRIMARY DOCTOR TO ASSIST WITH FOLLOWING HOME HEALTH ORDERS. PT DENIES NEED FOR THERAPY SERVICES, STATES HE IS WALKING WELL ENOUGH TO GO BACK HOME TO HIS APARTMENT. PT REPORTS HAVING A WALKER AND NEEDING NO OTHER MEDICAL EQUIPMENT. IMPORTANT MESSAGE FROM MEDICARE PROVIDED AND EXPLAINED. CM CALLED PT'S EX , CALI MOURA, ; CALI INFORMED CM THAT PT NEEDS TO GO TO REHAB DISCUSSED LAST WEEK, THERE IS NOT ONE TO "LOOK AFTER HIM AT HOME" THEY ALL WORK. CALI STATES THAT NO FAMILY IS GOING TO PICK HIM UP AND TAKE HIM HOME AND HE HAS TO GO TO REHAB FIRST BEFORE GOING HOME. CALI ALSO STATES THAT PT HAS TO STOP SMOKING THE "SYNTHETIC" AND DRINKING. CALI WANTS CM TO TELL PT WHAT SHE SAID. CM SPOKE TO PT IN ROOM, AFTER HEARING WHAT HIS EX HAD TO SAY, PT STATES HE WILL GO TO REHAB AT THE PLACE HE WAS LAST IN [place] THAT HIS EX AND THE LADY SURGEON/PRESIDENT WAS WORKING ON LAST WEEK. PAL FAXED UPDATE TO CASEY OF [facility], . PAL CALLED AND SPOKE TO KAYY AT [facility], ; KAYY ADVISED THAT [facility] RECEIVED REFERRAL LAST WEEK AND THAT SHE WILL NOTIFY [facility] OF UPDATE WITH OCCUPATIONAL THERAPY NOTE TO SUBMIT TO INSURANCE FOR AUTHORIZATION OF REHAB AND THERAPY SERVICES. CM WAITING ADMISSION DETERMINATION FROM [facility] INSURANCE AUTHORIZATION FROM PT'S INSURANCE COMPANY FOR SHELTER REHAB SERVICES. Rafa Richardson, CASE MANAGEMENT DCP- Discharge Planning Updated by [id number]: Janessa Rowell on 01/08/19 7:[address] 1000 - TC TO 2591 TO ADVISE THE PATIENT'S INSURANCE HAD BEEN UPDATED. HE HAS [facility] MEDICARE SOLUTIONS. SHE WILL PRECERT. 1130 - TC TO HIS EXWIFE. ADVISED I SEARCHED FOR A SKILLED FACILITY ON [facility] ON [address]OTH THE [place] [address] [facility]. NO FACILITY FOUND. REVIEWED THE FACILITIES AND RATINGS FOUND ON THE INTERNET. HAD SPOKEN WITH THE PATIENT, HE SAID IT WAS LOCATED A FEW BLOCKS FROM [facility]. TC TO [facility]. CM WAS ADVISED [facility] WAS A FEW BLOCK AWAY WHICH IS AN ACUTE REHAB. TC TO [facility], FOR [facility]- [phone]. PACKET PREPARED FOR REFERRAL. CM RECEIVED TELEPHONE CALL FROM FELY MITCHELL, THE FACILITY'S NAME IS [facility] WHICH IS A SKILLED FACILITY. PT EVAL HAD BEEN COMPLETED WITH RECOMMENDATION FOR SNF OR REHAB. AWAIT OT EVAL. OT WILL NOT BE AVAILABLE UNTIL FRIDAY DUE TO ILLNESS. PATIENT WILL ALSO REQUIRE A PRECERT FROM HIS INSURANCE. CM DISCUSSED WITH THE PATIENT. HE IS IN AGREEMENT WITH THE REFERRAL DIRECTED BY THE EX-. PATIENT CONSENT OBTAINED. TC TO [phone]. REFERRED TO [facility], AT [phone]. CM FA[place]ED REFERRAL TO [place] AFTER DISCUSSION W/ [facility]. SHE STATES THEY ARE CONTRACTED W/ [facility] MEDICARE SOLUTIONS. FAX NUMBER [phone]. AWAIT CALL FROM [facility]. DCP- Discharge Planning Updated by [id number]: Janessa Rowell on 01/07/19 5:[address] LATE ENTRY RECEIVED TELEPHONE CALL FROM KEYONA WITH [employer]. HE HAS OBATINED THE NECESSARY INSURANCE INFORMATION. CM WILL BEGIN SEARCH FOR A FACILITY A PAYOR SOURCE HAS BEEN IDENTIFIED FOR SERVICES. DCP- Discharge Planning Updated by [id number]: Janessa Rowell on 01/06/19 6:[address] Patient Name: ANGELI MOURA Admission Status: Elective Accout number: [id number] Admission Date: 01-04-2019 : 1950 Admission Diagnosis: Attending: MANNY WOODRUFF Current LOS: 2 Anticipated DC Date: Planned Disposition: Retirement Facility Primary Insurance: UNINSURED DISCOUNT PLAN Discharge Planning Comments: LATE ENTRY CM MET WITH THE PATIENT AT THE BEDSIDE THIS EARLY AFTERNOON. HE WAS PLEASANT AND COOPERATIVE. HE IS STILL HAZY WHEN ANSWERING QUESTIONS. STATED HE HAS TWO SONS. STATED HE LIVES AT [address] [place] [address]. STATES HE LIVES ALONE. GIVE PHONE NUMBER FOR HIS SON- [phone]. THIS IS NOT THE SON'S PHONE NUMBER. HE DOES NOT HAVE A PCP. PHARMACY- [facility] IN [place]. STATES HE WAS IN A FPC IN [place] 6 MONTHS AGO. HE CANNOT RECALL THE NAME. TC TO [facility] IN [place] [phone]. PATIENT HAD BEEN THERE PREVIOUSLY. HE WAS DISCHARGED IN 2017. CM ASK IF THEY HAD FAMILY CONTACT PHONE NUMBERS. OBTAINED PHONE NUMBER FOR PATIENT'S EX- . CM SPOKE W/ THE PATIENT. REC CONSENT TO CALL THE EXWIFE. TC TO CALI MOURA AT [phone]. SHE IS COGNIZANT OF PATIENT'S HOSPITALIZATION. SHE CAME UP TO SEE HIM AND SECURED HIS BELONGINGS. SHE WORKS TWO JOBS. SHE IS WILLING TO ASSIST W/ DISCHARHE. SHE FEELS HE SHOULD GO TO A SKILLED FACILITY IF POSSIBLE. SHE STATES HE DOES HAVE INSURANCE. SHE HAS HIS WALLET. SHE CHECKED AND HE HAS MULTIPLE INSURANCE CALLS. CM PROVIDED HER WITH THE PHONE NUMBER FOR MED DATA. HE HAS A [facility] MEDICARE HEALTH CARD MEMBER # [id number] GRP [id number]. SHE DOES NOT HAVE HIS SS#. SHE STATES HE IS A . SHE DOES NOT KNOW IF HE UTILIZES [facility]. SHE FEELS A FACILITY IN [place] WOULD BE BEST FOR THE PATIENT. SHE STATES HE NEEDS TO BE AWAY FROM PEOPLE WHO INFLUENCE HIM AND ENCOURAGES HIS HABITS. ?? [facility] [place]. SHE HAD SPOKEN WITH HIS PRIMARY NURSE EARLIER TODAY. SHE WILL FOLLOW THRU W/ MED DATA REGARDING INSURANCE ISSUES. CM TO FOLLOW TO ASSIST W/ DC PLANNING. PATIENT WILL NEED TO BE MORE ORIENTED AND ALERT TO PARTICIPATE. CM TELEPHONED MED DATA AND SPOKE W/ MICHAEL. PROVIDED MICHAEL WITH EX- CONTACT INFORMATION. Head Athletic Trainer: Janessa Rowell Coverage Notice Reviewer: [id number] - Rafa Richardson Notice Issued Date-Time: 01/11/2019 11:50 Notice Type: IM Discharge Notice Notice Delivered To: Patient Relationship to Patient: Filling And Stapling Machine Operator Name: Delivery Method: HAND - Hand Delivered Mer Days: Prior Verbal Notification: Recipient Understood Notice: Yes Recipient Signature: Yes Med Rec Note Co-signed by Attending: Coverage Notice Comment: Last DP export: 01/13/19 7:07 a Patient Name: ANGELI MOURA Page [id number] at 1145 All edits/amendments must be made on the electronic document DICTATION DATE: 01/13/19 1145 OIL BURNER TECHNICIAN: TIANA 01/13/19 1145 RPT#: [id number] DC DATE: STATUS: ADM IN [facility] [address] [place] [address] END OF REPORT
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
[2019-01-13 13:18] VITALS: BP 114/70
--- NOTE | 2019-01-13 14:50 | NUR ---
Nutrition follow-up: Diet: Low sodium PO intake 100% of most meals Labs reviewed WT: 120# RDN following.
--- NOTE | 2019-01-13 15:10 | NUR ---
SPOKE TO PHARMACY, PATIENT HAS NEVER PICKED UP PERSCRIPTION FOR ELIQUIS AND HAS NEVER STARTED IT FAR THEY KNOW. PATIENT STATES HE DOES NOT REMEMBER TAKING IT.
--- NOTE | 2019-01-13 15:54 | NUR ---
OT NOTE: UPON ENTERING ROOM, PT WAS EXITING BATHROOM. AMB WITHOUT AD BUT SLIGHTLY UNSTEADY. PT CONTINUED WITH GAIT, HIS BALANCE IMPROVED, HOWEVER, RECOMMEND CONTINUED THERAPY UPON DC, PT LIVES ALONE AND IS NOT SAFE TO CARE FOR SELF WITHOUT ASSIST AT THIS TIME. SIMPLE GROOMING AND FEEDING WITH SET UP. PT APPARENTLY WITH SOME URINARY INCONTINENCE, ROOM SMELLED OF URINE. PT LATER SEEN AMBULATING THROUGHOUT HALLWAY... STATED THAT HE WAS JUST LOOKING AROUND. CRISTHIAN SANTANA, OTR/L
--- NOTE | 2019-01-13 18:00 | NUR ---
OT NOTE: PT COMPLETED ADL AND FACILITY MOB WITH SPV/ZULMA. PT COMPLETED TOILETING TASKS WITH SBA. THANK YOU, KAROLYN MARTE
--- NOTE | 2019-01-13 19:59 | NUR ---
EVENING ROUNDS COMPLETED. RECIEVED REPORT FROM OUTGOING NURSE THAT PT DISCHARGE HAS BEEN PROCESSED, IV OUT AND PT IS READY FOR DC, BUT PT IS STILL WAITING ON VAN FROM [facility] TO COME PICK HIM UP, BUT NO ONE HAS COME TO DATABASE PROGRAMMER PT YET. CALLED THE FACILITY AT THIS TIME, BUT COULD NOT REACH ANYBODY. LEFT A VOICE MESSAGE. WILL CPOC.
[2019-01-13 20:00] VITALS: BP 106/59
--- NOTE | 2019-01-13 21:12 | NUR ---
[facility] AND STATES PT [employer] INSURANCE IS NOT APPROVED AT THIS TIME. STATE THEY WILL GET IT FIGURED OUT IN THE AM.
[2019-01-14] VITALS: BP 109/51
[2019-01-14 04:00] VITALS: BP 110/59
--- NOTE | 2019-01-14 08:49 | NUR ---
PT RESTING IN BED, SHIFT ASSESSMENT PERFORMED. DENIES ANY NEEDS AT THIS TIME, WILL CONT TO FOLLOW POC
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
[2019-01-14 09:41] VITALS: BP 95/53
--- NOTE | 2019-01-14 11:57 | NUR ---
NURSE REPORT CALLED TO CAPRICE HARLEY AT [facility]
--- NOTE | 2019-01-14 12:03 | NUR ---
DISCHARGE INSTRUCTIONS REVIEWED WITH PT AND ALL QUESTIONS ANSWERED. DENIES ANY NEEDS AT THIS TIME, WILL CONT TO FOLLOW POC
[2019-01-14 12:58] VITALS: BP 91/50
--- NOTE | 2019-01-14 13:02 | MORECARE ---
CASE MANAGEMENT DISCHARGE SUMMARY PATIENT: ANGELI MOURA UNIT: [id number] ADM DATE: 01/04/19 AGE: 68 : 50 SEX: M ROOM/BED: D.2108 AUTHOR: JH,ALAN PHYSICIAN: REFERRING PHYSICIAN: MANNY WOODRUFF DO DATE OF SERVICE: 01/14/19 Discharge Plan Patient Name: ANGELI MOURA Facility: [facility]:[place] : 1950 Planned Disposition: Longterm Facility Anticipated Discharge Date: 01/14/19 Discharge Date: Expected LOS: 10 Initial Reviewer: [email or web address] Initial Review Date: 01/04/2019 Generated: 01/14/19 2:01 pm Comments DCP- Discharge Planning Updated by [id number]: Rafa Richardson on 01/14/19 8:[address] Patient Name: ANGELI MOURA Encounter No: [id number] : 1950 Primary Insurance: [facility] MEDICARE SOLUTIONS Anticipated DC Date: 01-14-2019 Planned Disposition: Longterm Facility External Planned Provider: [facility], MEDICARE REHAB BED DCP follow-up note: CM CALED [facility] OF [facility], THEY DID NOT HAVE A VAN YESTERDAY AND WILL ACCEPT PT TODAY. INSURANCE AUTHORIZATION. IS STILL GOOD FOR REHAB ADMIT TODAY. [facility] WILL MOTORCYLES FINAL INSPECTOR PT IN [place]. CM NOTIFIED PT WHO IS IN AGREEMENT WITH PLAN. BEDSIDE NURSE NOTIFIED. CALL NURSE REPORT TO [facility], , AFTER 1000 AM. [facility] TO ARRANGE VAN MOTORCYLES FINAL INSPECTOR TODAY. Rafa Richardson, CASE MANAGEMENT DCP- Discharge Planning Updated by [id number]: Rafa Richardson on 01/13/19 10:[address] Patient Name: ANGELI MOURA Encounter No: [id number] : 1950 Primary Insurance: [facility] MEDICARE SOLUTIONS Anticipated DC Date: 01-13-2019 Planned Disposition: Longterm Facility External Planned Provider: [facility], MEDICARE REHAB BED DCP follow-up note: CM RECEIVED CALL FROM [facility], THEY WILL ACCEPT PT TODAY AND HAVE RECEIVED INSURANCE AUTHORIZATION. THEY WILL MOTORCYLES FINAL INSPECTOR PT IN [place]. CM NOTIFIED PT WHO IS IN AGREEMENT WITH PLAN. CM FAXED DISCHARGE INFORMATION TO [facility], . CALL NURSE REPORT TO [facility], . [facility] TO ARRANGE VAN MOTORCYLES FINAL INSPECTOR TODAY. Rafa Richardson CASE MANAGEMENT DCP- Discharge Planning Updated by [id number]: Rafa Richardson on 01/13/19 7:[address] Patient Name: ANGELI MOURA Encounter No: [id number] : 1950 Primary Insurance: [facility] MEDICARE SOLUTIONS Anticipated DC Date: 01-11-2019 Planned Disposition: Longterm Facility External Planned Provider: [facility], MEDICARE REHAB BED DCP follow-up note: CM FAXED UPDATE TO [facility], . [facility] PLANS TO ACCEPT IF INSURANCE WILL AUTHORIZE REHAB SERVICES. CM WAITING INSURANCE AUTHORIZATION FROM PT'S INSURANCE COMPANY FOR [facility] REHAB SERVICES. Rafa Richardson CASE MANAGEMENT DCP- Discharge Planning Updated by [id number]: Rafa Richardson on 01/12/19 8:[address] Patient Name: ANGELI MOURA Encounter No: [id number] : 1950 Primary Insurance: [employer] MEDICARE SOLUTIONS Anticipated DC Date: 01-11-2019 Planned Disposition: Longterm Facility External Planned Provider: [facility], MEDICARE REHAB BED DCP follow-up note: CM FAXED UPDATE TO [facility], . [facility] PLANS TO ACCEPT IF INSURANCE WILL AUTHORIZE REHAB SERVICES. CM WAITING INSURANCE AUTHORIZATION FROM PT'S INSURANCE COMPANY FOR [facility] REHAB SERVICES. Rafa Richardson CASE MANAGEMENT DCP- Discharge Planning Updated by [id number]: Rafa Richardson on 01/11/19 11:[address] Patient Name: ANGELI MOURA Encounter No: [id number] : 1950 Primary Insurance: [facility] MEDICARE SOLUTIONS Anticipated DC Date: 01-11-2019 Planned Disposition: Longterm Facility External Planned Provider: [facility] [place], MEDICARE REHAB BED DCP follow-up note: CM RECEIVED MESSAGE FROM BEDSIDE NURSE WHO INFORMED CM THAT PT DOES NOT WANT TO GO TO REHAB AND WANTS TO GO HOME; PT HAS NO ONE TO COME AND PICK HIM UP. CM REVIEWED CHART, MET WITH PT IN ROOM, DISCUSSED DISCHARGE PLANNING AND NEEDS. PT REPORTS HE NOW WANTS TO GO HOME AND NOT REHAB. PT STATES HE WILL NOT DRINK ALCOHOL ANY MORE. PT ASKED CM TO CALL HIS EX TO PICK HIM UP AND TAKE HIM HOME TODAY. PT HAS NO PRIMARY DOCTOR TO ASSIST WITH FOLLOWING HOME HEALTH ORDERS. PT DENIES NEED FOR THERAPY SERVICES, STATES HE IS WALKING WELL ENOUGH TO GO BACK HOME TO HIS APARTMENT. PT REPORTS HAVING A WALKER AND NEEDING NO OTHER MEDICAL EQUIPMENT. IMPORTANT MESSAGE FROM MEDICARE PROVIDED AND EXPLAINED. CM CALLED PT'S EX , CALI MOURA, ; CALI INFORMED CM THAT PT NEEDS TO GO TO REHAB DISCUSSED LAST WEEK, THERE IS NOT ONE TO "LOOK AFTER HIM AT HOME" THEY ALL WORK. CALI STATES THAT NO FAMILY IS GOING TO PICK HIM UP AND TAKE HIM HOME AND HE HAS TO GO TO REHAB FIRST BEFORE GOING HOME. CALI ALSO STATES THAT PT HAS TO STOP SMOKING THE "SYNTHETIC" AND DRINKING. CALI WANTS CM TO TELL PT WHAT SHE SAID. CM SPOKE TO PT IN ROOM, AFTER HEARING WHAT HIS EX HAD TO SAY, PT STATES HE WILL GO TO REHAB AT THE PLACE HE WAS LAST IN [place] THAT HIS EX AND THE [facility]AD[facility] NURSING PROGRAM COORDINATOR WAS WORKING ON LAST WEEK. PAL FAXED UPDATE TO [facility], . CM CALLED AND SPOKE TO KAYY AT [facility], ; KAYY ADVISED THAT [facility] RECEIVED REFERRAL LAST WEEK AND THAT SHE WILL NOTIFY [facility] OF UPDATE WITH OCCUPATIONAL THERAPY NOTE TO SUBMIT TO INSURANCE FOR AUTHORIZATION OF REHAB AND THERAPY SERVICES. CM WAITING ADMISSION DETERMINATION FROM [facility] WELL INSURANCE AUTHORIZATION FROM PT'S INSURANCE COMPANY FOR [facility] REHAB SERVICES. Rafa Richardson, CASE MANAGEMENT DCP- Discharge Planning Updated by [id number]: Janessa Rowell on 01/08/19 7:[address] 1000 - TC TO 2591 TO ADVISE THE PATIENT'S INSURANCE HAD BEEN UPDATED. HE HAS [facility] MEDICARE SOLUTIONS. SHE WILL PRECERT. 1130 - TC TO HIS EXWIFE. ADVISED I SEARCHED FOR A SKILLED FACILITY ON [facility] ON BOTH [address] [place]. NO FACILITY FOUND. REVIEWED THE FACILITIES AND RATINGS FOUND ON THE INTERNET. HAD SPOKEN WITH THE PATIENT, HE SAID IT WAS LOCATED A FEW BLOCKS FROM [facility]. TC TO [facility]. CM WAS ADVISED [facility] WAS A FEW BLOCK AWAY WHICH IS AN ACUTE REHAB. TC TO [facility], FOR [facility]- [phone]. PACKET PREPARED FOR REFERRAL. CM RECEIVED TELEPHONE CALL FROM FELY MITCHELL, THE FACILITY'S NAME IS [facility] WHICH IS A SKILLED FACILITY. PT EVAL HAD BEEN COMPLETED WITH RECOMMENDATION FOR SNF OR REHAB. AWAIT OT EVAL. OT WILL NOT BE AVAILABLE UNTIL FRIDAY DUE TO ILLNESS. PATIENT WILL ALSO REQUIRE A PRECERT FROM HIS INSURANCE. CM DISCUSSED WITH THE PATIENT. HE IS IN AGREEMENT WITH THE REFERRAL DIRECTED BY THE EX-. PATIENT CONSENT OBTAINED. TC TO [phone]. REFERRED TO CASE[facility] THE ECHOCARDIOGRAPH TECH, AT [phone]. CM FAXED REFERRAL TO [place] AFTER DISCUSSION W/ [facility]. SHE STATES THEY ARE CONTRACTED W/ [facility] MEDICARE SOLUTIONS. FAX NUMBER [phone]. AWAIT CALL FROM ECHOCARDIOGRAPH TECH. DCP- Discharge Planning Updated by [id number]: Janessa Rowell on 01/07/19 5:[address] LATE ENTRY RECEIVED TELEPHONE CALL FROM [place] WITH [facility]. HE HAS OBATINED THE NECESSARY INSURANCE INFORMATION. CM WILL BEGIN SEARCH FOR A FACILITY A PAYOR SOURCE HAS BEEN IDENTIFIED FOR SERVICES. DCP- Discharge Planning Updated by [id number]: Janessa Rowell on 01/06/19 6:[address] Patient Name: ANGELI MOURA Admission Status: Elective Accout number: [id number] Admission Date: 01-04-2019 : 1950 Admission Diagnosis: Attending: MANNY WOODRUFF Current LOS: 2 Anticipated DC Date: Planned Disposition: Longterm Facility Primary Insurance: UNINSURED DISCOUNT PLAN Discharge Planning Comments: LATE ENTRY CM MET WITH THE PATIENT AT THE BEDSIDE THIS EARLY AFTERNOON. HE WAS PLEASANT AND COOPERATIVE. HE IS STILL HAZY WHEN ANSWERING QUESTIONS. STATED HE HAS TWO SONS. STATED HE LIVES AT [address] [place] [address]. STATES HE LIVES ALONE. GIVE PHONE NUMBER FOR HIS SON- [phone]. THIS IS NOT THE SON'S PHONE NUMBER. HE DOES NOT HAVE A PCP. PHARMACY- [facility] IN [place]. STATES HE WAS IN A [facility] IN [place] 6 MONTHS AGO. HE CANNOT RECALL THE NAME. TC TO [facility] [place] [phone]. PATIENT HAD BEEN THERE PREVIOUSLY. HE WAS DISCHARGED IN 2017. CM ASK IF THEY HAD FAMILY CONTACT PHONE NUMBERS. OBTAINED PHONE NUMBER FOR PATIENT'S EX- . CM SPOKE W/ THE PATIENT. REC CONSENT TO CALL THE EXWIFE. TC TO CALI MOURA AT [phone]. SHE IS COGNIZANT OF PATIENT'S HOSPITALIZATION. SHE CAME UP TO SEE HIM AND SECURED HIS BELONGINGS. SHE WORKS TWO JOBS. SHE IS WILLING TO ASSIST W/ DISCHARHE. SHE FEELS HE SHOULD GO TO A SKILLED FACILITY IF POSSIBLE. SHE STATES HE DOES HAVE INSURANCE. SHE HAS HIS [place]LET. SHE CHECKED AND HE HAS MULTIPLE INSURANCE CALLS. CM PROVIDED HER WITH THE PHONE NUMBER FOR MED DATA. HE HAS A [facility] MEDICARE HEALTH CARD MEMBER # [id number] [facility] [address]. SHE DOES NOT HAVE HIS SS#. SHE STATES HE IS A . SHE DOES NOT KNOW IF HE UTILIZES [facility]. SHE FEELS A FACILITY IN [place] WOULD BE BEST FOR THE PATIENT. SHE STATES HE NEEDS TO BE AWAY FROM PEOPLE WHO INFLUENCE HIM AND ENCOURAGES HIS HABITS. [address] IN [place]. SHE HAD SPOKEN WITH HIS PRIMARY NURSE EARLIER TODAY. SHE WILL FOLLOW THRU W/ MED DATA REGARDING INSURANCE ISSUES. CM TO FOLLOW TO ASSIST W/ DC PLANNING. PATIENT WILL NEED TO BE MORE ORIENTED AND ALERT TO PARTICIPATE. CM TELEPHONED MED DATA AND SPOKE W/ MICHAEL. PROVIDED MICHAEL WITH EX- CONTACT INFORMATION. Power Machine Operator: Janessa Rowell Coverage Notice Reviewer: [id number] - Rafa Richardson Notice Issued Date-Time: 01/11/2019 11:50 Notice Type: IM Discharge Notice Notice Delivered To: Patient Relationship to Patient: Counterperson Name: Delivery Method: HAND - Hand Delivered Mer Days: Prior Verbal Notification: Recipient Understood Notice: Yes Recipient Signature: Yes Med Rec Note Co-signed by Attending: Coverage Notice Comment: Last DP export: 01/14/19 8:05 a Patient Name: ANGELI MOURA Page [id number] at 1302 All edits/amendments must be made on the electronic document DICTATION DATE: 01/14/19 1301 SENIOR COMMISSARY AGENT: TIANA 01/14/19 1301 RPT#: [id number] DC DATE: STATUS: ADM IN [facility] [address] [place] [address] END OF REPORT
--- NOTE | 2019-01-14 13:13 | NUR ---
PT ROCKYE IS HERE FROM [facility]. ASSISTED PT TO FRONT OF HOSPITAL VIA WHEELCHAIR.
--- NOTE | 2019-01-14 16:09 | NUR ---
OT NOTE: PT COMPLETED ADL MOB WITH SUPV/MOD I. PT COMPLETED DYNAMIC SITTING BALANCE WITH MOD I. PT COMPLETED TOILETING TASKS WITH SPV. THANK YOU, KAROLYN MARTE
== END 2019-01-14 13:13 | DRG 896 ==
LOC: D.M2 15:16
PROVIDERS: Family Medicine; ADMIT Family Medicine; ATTEND Family Medicine
DX: F10.229 Alcohol dependence with intoxication, unspecified (principal); E43 Unspecified severe protein-calorie malnutrition; Z68.1 Body mass index [BMI] 19.9 or less, adult; F10.239 Alcohol dependence with withdrawal, unspecified; F17.213 Nicotine dependence, cigarettes, with withdrawal; I10 Essential (primary) hypertension; I25.10 Atherosclerotic heart disease of native coronary artery without angina pectoris